=== PATIENT | male | born 1965 | race Caucasian/White ===

== ENCOUNTER 2020-10-02 16:58 | Emergency (ER) | payer SELFPAY ==
[2020-10-02 18:41] LABS: SARS-COV-2 RT PCR NEGATIVE (NEGATIVE)
--- NOTE | 2020-10-02 18:56 | ER ---
Nurse's Notes [facility] Name: Antonio Manning Age: 55 yrs Sex: Male : 1965 Arrival Date: 10/02/2020 Time: 17:02 Bed 2 Private MD: Diagnosis: Acute pharyngitis Presentation: 10/02 17:16 Chief complaint: Patient states: Nasal congestion and pressure that began "a few days ss ago". Denies fever/ cough. Coronavirus screen: Client denies travel out of the [place] in the last 14 days. Ebola Screen: Patient denies exposure to infectious person. Patient denies travel to an Ebola-affected area in the 21 days before illness onset. Initial Sepsis Screen: Does the patient meet any 2 criteria? No. Patient's initial sepsis screen is negative. Does the patient have a suspected source of infection? No. Patient's initial sepsis screen is negative. Risk Assessment: Do you want to hurt yourself or someone else? Patient reports no desire to harm self or others. Onset of symptoms is unknown. 17:16 Method Of Arrival: Ambulatory ss 17:16 Acuity: SALLIE 5 ss Historical: - Allergies: 17:17 No Known Allergies; ss - PMHx: 17:17 Diabetes - NIDDM; ss - PSHx: 17:17 None; ss - Immunization history:: Adult Immunizations up to date. - Social history:: Smoking status: Patient reports the use of cigarette tobacco products, smokes one pack cigarettes per day. Screenin:45 Abuse screen: Denies threats or abuse. Denies injuries from another. Nutritional ph screening: No deficits noted. Tuberculosis screening: No symptoms or risk factors identified. Fall Risk None identified. Assessment: 17:38 General: Appears in no apparent distress. comfortable, Behavior is calm, cooperative, ph appropriate for age, Denies fever. Pain: Denies pain. Neuro: Level of Consciousness is awake, alert, obeys commands, Oriented to person, place, time, situation. 17:45 Cardiovascular: Capillary refill < 3 seconds in bilateral fingers Patient's skin is ph warm and dry. Respiratory: Airway is patent Respiratory effort is even, unlabored, Denies cough, shortness of breath. GI: Reports diarrhea. EENT: Reports nasal congestion nasal discharge. Derm: Skin is intact, Skin is pink, warm \\T\\ dry. Musculoskeletal: Circulation, motion, and sensation intact. Range of motion: intact in all extremities. 18:19 Reassessment: Patient appears in no apparent distress at this time. Patient and/or hb family updated on plan of care and expected duration. Pain level reassessed. Patient is alert, oriented x 3, equal unlabored respirations, skin warm/dry/pink. Vital Signs: 17:16 BP 156 / 106; Pulse 87; Resp 17; Temp 97.5(O); Pulse Ox 99% on R/A; Weight 113.4 kg; Height 5 ft. 11 in. (180.34 cm); Pain 0/10; 18:42 BP 147 / 89; Pulse 71; Resp 18; Temp 97.6; Pulse Ox 99% on R/A; ph 17:16 Body Mass Index 34.87 (113.40 kg, 180.34 cm) ED Course: 17:02 Patient arrived in ED. mr 17:12 Lalo Goyal NP is PHCP. pm1 17:12 Quan Lynch MD is Attending Physician. pm1 17:17 Triage completed. ss 17:17 Arm band placed on right wrist. ss 17:30 Shawna Harris RN is Primary Nurse. ph 17:45 Patient has correct armband on for positive identification. Bed in low position. Call ph light in reach. Side rails up X 1. Pulse ox on. NIBP on. Door closed. Noise minimized. 17:45 No provider procedures requiring assistance completed. Patient did not have IV access ph during this emergency room visit. Administered Medications: 19:12 Drug: Decadron 10 mg Route: IM; Site: left gluteus; wh 19:23 Follow up: Response: No adverse reaction; Medication administered at discharge. Outcome: 18:56 Discharge ordered by . pm1 19:23 Discharged to home ambulatory. mg2 19:23 Condition: stable 19:23 Discharge instructions given to patient, Instructed on discharge instructions, follow up and referral plans. Demonstrated understanding of instructions, follow-up care. 19:23 Patient left the ED. mg2 Signatures: Franca PiperPriya RN RN Shawna Harris RN RN Lalo Goyal, JANET IUSS MASTER ANALYST pm1 Arlene Claros RN RN Eduard Guadalupe RN RN [place], Chucho, RN RN mg2
--- NOTE | 2020-10-02 18:56 | EDPHYS ---
Physician Documentation [facility] Name: Antonio Manning Age: 55 yrs Sex: Male : 1965 Arrival Date: 10/02/2020 Time: 17:02 Bed 2 Private MD: ED Physician Quan Lynch HPI: 10/02 18:39 This 55 yrs old Male presents to ER via Ambulatory with complaints of Sore pm1 throat and Sinus Congestion. 18:39 The patient presents with sore throat. Onset: The symptoms/episode began/occurred 3 pm1 day(s) ago. Severity of symptoms: in the emergency department the symptoms are actually worse. Modifying factors: The symptoms are alleviated by nothing, Patient's oral intake status: good The patient has had contact with sick son, he is presenting to the ER with n/v/d. Associated signs and symptoms: Pertinent positives: sinus headache, sore throat, Pertinent negatives chest pain, cough, fever. The patient has not experienced similar symptoms in the past. The patient has not recently seen a physician. Patient with initial onset of sore throat 3 days ago then sinus pain and pressure started. Historical: - Allergies: 17:17 No Known Allergies; ss - PMHx: 17:17 Diabetes - NIDDM; ss - PSHx: 17:17 None; ss - Immunization history:: Adult Immunizations up to date. - Social history:: Smoking status: Patient reports the use of cigarette tobacco products, smokes one pack cigarettes per day. ROS: 18:39 Constitutional: Negative for fever, chills, and weight loss. pm1 18:39 Neck: Negative for injury, pain, and swelling, Cardiovascular: Negative for chest pain, palpitations, and edema, Respiratory: Negative for shortness of breath, cough, wheezing, and pleuritic chest pain, Abdomen/GI: Negative for abdominal pain, nausea, vomiting, diarrhea, and constipation, Back: Negative for injury and pain, MS/Extremity: Negative for injury and deformity, Skin: Negative for injury, rash, and discoloration, Neuro: Negative for headache, weakness, numbness, tingling, and seizure. 18:39 ENT: Positive for sinus congestion, sinus pain, sore throat, Negative for ear pain, difficulty swallowing, difficulty handling secretions, hoarseness. Exam: 18:39 Constitutional: This is a well developed, well nourished patient who is awake, alert, pm1 and in no acute distress. 18:39 Neck: Trachea midline, no thyromegaly or masses palpated, and no cervical lymphadenopathy. Supple, full range of motion without nuchal rigidity, or vertebral point tenderness. No Meningismus. 18:39 Back: No spinal tenderness. No costovertebral tenderness. Full range of motion. Skin: Warm, dry with normal turgor. Normal color with no rashes, no lesions, and no evidence of cellulitis. MS/ Extremity: Pulses equal, no cyanosis. Neurovascular intact. Full, normal range of motion. 18:39 Head/face: Sinus tenderness, that is moderate, is located over the left maxillary sinus. 18:39 ENT: Posterior pharynx: Tonsils: bilaterally enlarged, with erythema, no exudate, no ulcerations, peritonsillar mass, is not appreciated. 18:39 Cardiovascular: Exam negative for acute changes, Rate: normal, Rhythm: regular, Pulses: no pulse deficits are appreciated. 18:39 Respiratory: Exam negative for acute changes, respiratory distress, shortness of breath. 18:39 Neuro: Exam negative for acute changes, Orientation: is normal, Mentation: is normal, Motor: is normal, moves all fours. Vital Signs: 17:16 BP 156 / 106; Pulse 87; Resp 17; Temp 97.5(O); Pulse Ox 99% on R/A; Weight 113.4 kg; ss Height 5 ft. 11 in. (180.34 cm); Pain 0/10; 18:42 BP 147 / 89; Pulse 71; Resp 18; Temp 97.6; Pulse Ox 99% on R/A; ph 17:16 Body Mass Index 34.87 (113.40 kg, 180.34 cm) ss MDM: 17:12 Patient medically screened. pm1 18:55 Data reviewed: vital signs. Data interpreted: Pulse oximetry: on room air is 99 %. pm1 Interpretation: normal. Counseling: I had a detailed discussion with the patient and/or guardian regarding: the historical points, exam findings, and any diagnostic results supporting the discharge/admit diagnosis, lab results, the need for outpatient follow up, to return to the emergency department if symptoms worsen or persist or if there are any questions or concerns that arise at home. 10/02 17:26 Order name: Strep; Complete Time: 18:32 pm1 10/02 18:22 Order name: Throat Culture EDMS 10/02 17:26 Order name: Droplet/Contact Precautions; Complete Time: 17:31 pm1 10/02 17:26 Order name: Labs collected and sent; Complete Time: 17:31 pm1 10/02 17:26 Order name: O2 Per Protocol; Complete Time: 17:44 pm1 10/02 18:41 Order name: COVID-19/FLU A+B; Complete Time: 18:54 EDMS Administered Medications: 19:12 Drug: Decadron 10 mg Route: IM; Site: left gluteus; 19:23 Follow up: Response: No adverse reaction; Medication administered at discharge. Disposition: 10/02/20 18:56 Discharged to Home. Impression: Acute pharyngitis. - Condition is Stable. - Discharge Instructions: Pharyngitis, Sinusitis, Adult. - Prescriptions for Augmentin 875- 125 mg Oral Tablet - take 1 tablet by ORAL route every 12 hours for 10 days; 20 tablet. - Medication Reconciliation Form, Thank You Letter, Antibiotic Education, Prescription Opioid Use form. - Follow up: Emergency Department; When: As needed; Reason: Worsening of condition. Follow up: Private Physician; When: 2 - 3 days; Reason: Recheck today's complaints, Continuance of care, Re-evaluation by your physician. - Problem is new. - Symptoms have improved. Addendum: 10/04/2020 06:13 Co-signature as Attending Physician, Quan Lynch MD I agree with the assessment and c dugan plan of care. Signatures: Dispatcher [employer] [facility] Quan Lynch MD MD cha Smirch, Shelby, RN RN Lalo Goyal, JANET NUT SORTER OPERATOR pm1 Eduard Guadalupe RN RN Chucho Humphrey RN RN mg2 Corrections: (The following items were deleted from the chart) 10/02 17:59 17:27 Influenza Screen (A \T\ B)+BA.LAB.BRZ ordered. EDPR EDPR 17:59 17:41 CORONAVIRUS+MR.LAB.BRZ ordered. EDPR EDMS 19:23 18:56 10/02/2020 18:56 Discharged to Home. Impression: Acute pharyngitis. Condition is mg2 Stable. Forms are Medication Reconciliation Form, Thank You Letter, Antibiotic Education, Prescription Opioid Use. Follow up: Emergency Department; When: As needed; Reason: Worsening of condition. Follow up: Private Physician; When: 2 - 3 days; Reason: Recheck today's complaints, Continuance of care, Re-evaluation by your physician. Problem is new. Symptoms have improved. pm1
[2020-10-02] MEDS ORDERED: dexAMETHasone 10 MG/ML VIAL ONE (19:26)
[2020-10-02 20:22] VITALS: O2SAT 99
[2020-10-02 20:23] VITALS: BP 147/89; TEMP 97.6
== END 2020-10-02 19:23 | disposition home or self-care (01) ==
LOC: ER 16:58
DX: J02.9 Acute pharyngitis, unspecified (principal); Z20.822 Contact with and (suspected) exposure to COVID-19; F17.210 Nicotine dependence, cigarettes, uncomplicated
CPT/HCPCS: 0240U; 87070; 87081; 96372; 99283; J1100

== ENCOUNTER 2020-10-07 18:08 | Emergency (ER) | payer SELFPAY ==
[2020-10-07] MEDS ORDERED: ACETAMINOPHEN 500 MG TAB ONE (19:57)
--- NOTE | 2020-10-07 20:03 | RAD REPORT ---
EXAM DESCRIPTION: CT - Head Brain Wo Cont - 10/07/2020 7:52 pm CLINICAL HISTORY: Dizziness;Headache Headache, drowsiness COMPARISON: No comparisons TECHNIQUE: All CT scans are performed using dose optimization technique as appropriate and may inclu de automated exposure control or mA/KV adjustment according to patient size. FINDINGS: No intracranial hemorrhage, hydrocephalus or extra-axial fluid collection.No areas of brai n edema or evidence of midline shift. Left maxillary antrum and ethmoid air cells are opacified. Paranasal sinuses and mastoids are otherwi se clear. The calvarium is intact. IMPRESSION: No acute intracranial abnormality.
--- NOTE | 2020-10-07 20:04 | RAD REPORT ---
EXAM DESCRIPTION: RAD - Chest Pa And Lat (2 Views) - 10/07/2020 7:59 pm CLINICAL HISTORY: COUGH Chest pain. COMPARISON: No comparisons FINDINGS: The lungs are clear. The heart is normal in size. No displaced fractures. IMPRESSION: No acute or concerning finding suspected.
[2020-10-07 20:52] LABS: Absolute Lymphocytes (CBC) 2.7 K/uL (0.7-4.9); Basophils % 0.9 % (0-1.3); Hematocrit 49.6 % (39.6-49.0); Lymphocytes % 17.7 % (15.3-44.8); MPV 9.6 fL (7.6-11.3); RBC Red Blood Cell Count 5.72 M/uL (4.33-5.43)
[2020-10-07 21:09] LABS: ALT/SGPT 70 U/L (12-78); AST/SGOT 39 U/L (15-37); Albumin 3.4 g/dL (3.4-5.0); Alkaline Phosphatase 103 U/L (45-117); BUN Blood Urea Nitrogen 13 mg/dL (7-18); Bicarbonate 23 mmol/L (21-32); Bilirubin Direct 0.3 mg/dL (0-0.2); Glucose Level 369 mg/dL (74-106); Lipase 34 U/L (73-393); Potassium 4.3 mmol/L (3.5-5.1); Protein, Total 7.4 g/dL (6.4-8.2); Sodium Level 131 mmol/L (136-145)
[2020-10-07 21:51] LABS: Blood Morphology Comment NOT SEEN (NOT SEEN); Platelet Estimate DECR; White Blood Cell Scan OK (OK)
[2020-10-07] MEDS ORDERED: NPH (HUMAN) 100 UNITS/ML INSULIN SQ ONE (21:55)
[2020-10-07] MEDS ORDERED: MECLIZINE HCL 12.5 MG TAB ONE (21:56)
[2020-10-07] MEDS ORDERED: CEFTRIAXONE/SWI 1gm 1 GM/10 ML SYR ONE (21:56)
[2020-10-07] MEDS ORDERED: NA CHLORIDE 0.9% 1,000 ML ONE (21:56)
--- NOTE | 2020-10-07 23:08 | ER ---
Nurse's Notes [facility] Name: Antonio Manning Age: 55 yrs Sex: Male : 1965 Arrival Date: 10/07/2020 Time: 18:10 Bed 7 Private MD: Diagnosis: Acute sinusitis;Dizziness and giddiness;Diabetes mellitus due to underlying condition with hyperglycemia Presentation: 10/07 18:20 Chief complaint: Patient states: Continued nasal congestion/ESTRADA''s since last visit here ll1 on Sunday. Antibiotics (amoxicillin) not helping. Fever around 100 at home. + N/V/D. Feels dizzy, weak, fatigue. Coronavirus screen: Client denies travel out of the [place] in the last 14 days. congestion, difficulty breathing, fatigue, headache, Client presents with at least one sign or symptom that may indicate coronavirus-19. Standard/surgical mask placed on the client. The client reports previous COVID testing was negative. Ebola Screen: Patient denies travel to an Ebola-affected area in the 21 days before illness onset. Initial Sepsis Screen: Does the patient meet any 2 criteria? HR > 90 bpm. No. Patient's initial sepsis screen is negative. Does the patient have a suspected source of infection? Yes: Other: sinus infecrtion. Risk Assessment: Do you want to hurt yourself or someone else? Patient reports no desire to harm self or others. Onset of symptoms was September 28, 2020. 18:20 Method Of Arrival: Ambulatory ll1 18:20 Acuity: SALLIE 3 ll1 Triage Assessment: 19:29 Headache History: The patient has had previous headaches and this one is similar to previous episodes. General: Appears in no apparent distress. Pain: Pain Also complains of COngestion. 19:31 Pain: Pain began a week ago. Historical: - Allergies: 18:23 Iodine; ll1 18:23 shrimp; ll1 - PMHx: 18:23 Diabetes - NIDDM; ll1 - PSHx: 18:23 None; ll1 - Immunization history:: Flu vaccine is up to date. - Social history:: Smoking status: Patient reports the use of cigarette tobacco products, smokes one pack cigarettes per day. Screenin:43 Abuse screen: Denies threats or abuse. Denies injuries from another. Nutritional ph screening: No deficits noted. Tuberculosis screening: No symptoms or risk factors identified. Fall Risk None identified. Assessment: 19:28 General: Appears in no apparent distress. Behavior is calm, cooperative, appropriate wh for age. Pain: Complains of pain in face. Neuro: Level of Consciousness is awake, alert, obeys commands, Oriented to person, place, time, situation, Appropriate for age. Cardiovascular: Capillary refill < 3 seconds. Respiratory: Reports cough that is Congestion Airway is patent Respiratory effort is even, unlabored, Respiratory pattern is regular, symmetrical. GI: Abdomen is flat, non-distended. : No signs and/or symptoms were reported regarding the genitourinary system. EENT: No signs and/or symptoms were reported regarding the EENT system. Derm: Skin is intact. Musculoskeletal: Circulation, motion, and sensation intact. 21:00 Reassessment: Patient appears in no apparent distress at this time. Patient and/or wh family updated on plan of care and expected duration. Pain level reassessed. Patient is alert, oriented x 3, equal unlabored respirations, skin warm/dry/pink. 22:44 Reassessment: Patient appears in no apparent distress at this time. Patient and/or mg2 family updated on plan of care and expected duration. Pain level reassessed. Patient is alert, oriented x 3, equal unlabored respirations, skin warm/dry/pink. 23:19 Reassessment: Patient appears in no apparent distress at this time. Patient and/or wh family updated on plan of care and expected duration. Pain level reassessed. Patient is alert, oriented x 3, equal unlabored respirations, skin warm/dry/pink. Vital Signs: 18:20 BP 137 / 102; Pulse 96; Resp 18; Temp 97.7; Pulse Ox 100% on R/A; Weight 113.4 kg; ll1 Height 5 ft. 11 in. (180.34 cm); Pain 9/10; 20:02 BP 142 / 98 Supine; Pulse 86; oe 20:04 BP 126 / 92 Sitting; Pulse 96; oe 20:06 BP 110 / 88 Standing; Pulse 100; oe 22:44 BP 126 / 77; Pulse 95; Resp 18; Pulse Ox 100% on R/A; mg2 23:19 BP 131 / 81; Pulse 88; Resp 18; Pulse Ox 98% on R/A; wh 18:20 Body Mass Index 34.87 (113.40 kg, 180.34 cm) ll1 ED Course: 18:10 Patient arrived in ED. as 18:22 Triage completed. ll1 18:22 Arm band placed on. ll1 18:43 Patient has correct armband on for positive identification. Bed in low position. Call ph light in reach. Side rails up X 1. Pulse ox on. NIBP on. Door closed. Noise minimized. Warm blanket given. 18:55 Quan Gill PA is PHCP. cp 18:55 Rob Benson MD is Attending Physician. cp 19:18 Chucho Humphrey, RN is Primary Nurse. mg2 19:57 CT Head Brain wo Cont In Process Unspecified. EDMS 19:59 XRAY Chest Pa And Lat (2 Views) In Process Unspecified. EDMS 20:30 Inserted saline lock: 20 gauge in left antecubital area, using aseptic technique. Blood mg2 collected. 20:39 No provider procedures requiring assistance completed. mg2 20:45 Quan Lynch MD is Attending Physician. cp 23:20 IV discontinued, intact, bleeding controlled, No redness/swelling at site. Administered Medications: 19:42 Drug: Tylenol 1000 mg Route: PO; 21:27 Follow up: Response: No adverse reaction mg2 20:38 Drug: NS 0.9% 1000 ml Route: IV; Rate: 1 bolus; Site: left antecubital; 23:09 Follow up: Response: No adverse reaction; IV Status: Completed infusion; IV Intake: mg2 1000ml 21:44 Drug: Meclizine 25 mg Route: PO; mg2 23:09 Follow up: Response: No adverse reaction mg2 21:44 Drug: NS 0.9% 1000 ml Route: IV; Rate: 1 bolus; Site: left antecubital; mg2 23:09 Follow up: Response: No adverse reaction; IV Status: Completed infusion; IV Intake: mg2 100ml 21:45 Drug: Rocephin 1 grams Route: IV; Rate: calculated rate; Site: left antecubital; mg2 23:09 Follow up: Response: No adverse reaction; IV Status: Completed infusion mg2 21:45 Drug: NovoLIN N 7 units {Co-Signature: mg2 (Chucho Humphrey RN).} Route: Sub-Q; Site: right lower abdomen; 23:08 Follow up: Response: No adverse reaction mg2 Intake: 23:09 IV: 100ml; Total: 100ml. mg2 23:09 IV: 1000ml; Total: 1100ml. mg2 Outcome: 23:08 Discharge ordered by . cp 23:19 Discharged to home ambulatory. 23:19 Condition: stable 23:19 Discharge instructions given to patient, Instructed on discharge instructions, follow up and referral plans. medication usage, POC Demonstrated understanding of instructions, follow-up care, medications, POC Prescriptions given X 3. 23:20 Patient left the ED. Signatures: Dispatcher [employer] EDMS Mary Damian Patricia, RN RN ph Bridget, Quan, PA PA cp Jaime Klein Winsy, RN RN Chucho Humphrey RN RN [facility] Damion Del Rio RN RN [facility] Chucho Humphrey RN [facility] Corrections: (The following items were deleted from the chart) 18:24 18:20 Chief complaint: Patient states: Continued nasal congestion/ESTRADA''s since last [facility] visit here on Sunday. Antibiotics (amoxicillin) not helping. Fever around 100 at home. + N/V/D. [facility] 19:42 19:28 Respiratory: Reports Congestion Airway is patent Respiratory effort is even, wh unlabored, Respiratory pattern is regular, symmetrical, wh
--- NOTE | 2020-10-07 23:09 | EDPHYS ---
Physician Documentation [facility] Name: Antonio Manning Age: 55 yrs Sex: Male : 1965 Arrival Date: 10/07/2020 Time: 18:10 Bed 7 Private MD: ED Physician Quan Lynch HPI: 10/07 19:40 This 55 yrs old Male presents to ER via Ambulatory with complaints of Sinus cp Congestion - antibiotics not working, Headache, Dizziness. 19:40 The patient presents with dizziness, lightheadedness. cp 19:40 Associated signs and symptoms: Pertinent positives: headache, nausea, vomiting, sinus cp pressure and sinus congestion, Pertinent negatives: fever. 19:40 Patient's baseline: Neuro: alert and fully oriented, Motor: no deficits, Ambulation: cp walks without assistance, Speech: normal. Patient reports being seen in this ED 10-02-2020 and being diagnosed with acute sinusitis. Patient reports he has been taking prescribed Augmentin with no improvement. Patient c/o headache, dizziness, general weakness. Denies fever. Historical: - Allergies: 18:23 Iodine; ll1 18:23 shrimp; ll1 - PMHx: 18:23 Diabetes - NIDDM; ll1 - PSHx: 18:23 None; ll1 - Immunization history:: Flu vaccine is up to date. - Social history:: Smoking status: Patient reports the use of cigarette tobacco products, smokes one pack cigarettes per day. ROS: 19:45 Constitutional: Positive for fatigue, Negative for body aches, chills, fever, poor PO cp intake. 19:45 Eyes: Negative for injury, pain, redness, and discharge. cp 19:45 ENT: Positive for sinus congestion, sinus pain, Negative for drainage from ear(s), ear pain, difficulty swallowing, difficulty handling secretions. 19:45 Cardiovascular: Negative for chest pain. 19:45 Respiratory: Negative for cough, shortness of breath, wheezing. 19:45 Abdomen/GI: Positive for nausea and vomiting, Negative for diarrhea, constipation. 19:45 Neuro: Positive for dizziness, headache, general weakness, Negative for altered mental status. 19:45 All other systems are negative. Exam: 19:50 Constitutional: The patient appears in no acute distress, alert, awake, non-toxic, well cp developed, well nourished. 19:50 Head/face: Sinus tenderness, that is moderate, is located over the right maxillary cp sinus. 19:50 Eyes: Periorbital structures: appear normal, Pupils: equal, round, and reactive to light and accomodation, Extraocular movements: intact throughout, Conjunctiva: normal, no exudate, no injection, Sclera: no appreciated abnormality, Lids and lashes: appear normal, bilaterally. 19:50 ENT: External ear(s): are unremarkable, Ear canal(s): are normal, clear, TM's: dullness, bilaterally, Nose: is normal, Mouth: Lips: moist, Oral mucosa: pink and intact, moist, Posterior pharynx: Airway: no evidence of obstruction, patent. 19:50 Neck: ROM/movement: is normal, is supple, without pain, no range of motions limitations, no meningismus, Lymph nodes: no appreciated lymphadenopathy. 19:50 Chest/axilla: Inspection: normal. 19:50 Cardiovascular: Rate: normal, Rhythm: regular, Edema: is not appreciated, JVD: is not appreciated. 19:50 Respiratory: the patient does not display signs of respiratory distress, Respirations: normal, no use of accessory muscles, no retractions, labored breathing, is not present, Breath sounds: are clear throughout, no decreased breath sounds, no stridor, no wheezing. 19:50 Abdomen/GI: Exam negative for discomfort, distension, guarding, Inspection: abdomen appears normal. 19:50 Skin: cellulitis, is not appreciated, no rash present. 19:50 Neuro: Orientation: to person, place \T\ time. Mentation: is normal, Cerebellar function: is grossly normal, Motor: moves all fours, strength is normal, Sensation: is normal. Vital Signs: 18:20 BP 137 / 102; Pulse 96; Resp 18; Temp 97.7; Pulse Ox 100% on R/A; Weight 113.4 kg; ll1 Height 5 ft. 11 in. (180.34 cm); Pain 9/10; 20:02 BP 142 / 98 Supine; Pulse 86; oe 20:04 BP 126 / 92 Sitting; Pulse 96; oe 20:06 BP 110 / 88 Standing; Pulse 100; oe 22:44 BP 126 / 77; Pulse 95; Resp 18; Pulse Ox 100% on R/A; mg2 23:19 BP 131 / 81; Pulse 88; Resp 18; Pulse Ox 98% on R/A; wh 18:20 Body Mass Index 34.87 (113.40 kg, 180.34 cm) ll1 MDM: 18:58 Patient medically screened. cp 23:07 Data reviewed: vital signs, nurses notes, lab test result(s), radiologic studies, CT cp scan, plain films. 23:07 Counseling: I had a detailed discussion with the patient and/or guardian regarding: the cp historical points, exam findings, and any diagnostic results supporting the discharge/admit diagnosis, lab results, radiology results, to return to the emergency department if symptoms worsen or persist or if there are any questions or concerns that arise at home. Response to treatment: the patient's symptoms have markedly improved after treatment, patient is well hydrated. ED course: VSS. Pain, nausea and dizziness improved. Will discharge to home for continued monitoring. Will have patient start oral Levaquin for sinusitis. 10/07 19:50 Order name: Basic Metabolic Panel; Complete Time: 21:30 10/07 21:30 Interpretation: Normal except: NA 131; GLUC 369; GFR 72. cp 10/07 19:50 Order name: CBC with Diff; Complete Time: 22:15 cp 10/07 21:30 Interpretation: Normal except: WBC 15.20; RBC 5.72; HCT 49.6; NEUT A 10.3; MNA 1.6. cp 10/07 19:50 Order name: Hepatic Function; Complete Time: 21:30 cp 10/07 19:50 Order name: Lipase; Complete Time: 21:30 cp 10/07 19:50 Order name: Ketone, Serum; Complete Time: 21:30 cp 10/07 19:57 Order name: Glucose, Ancillary Testing; Complete Time: 20:07 EDMS 10/07 19:36 Order name: CT Head Brain wo Cont; Complete Time: 20:07 cp 10/07 19:36 Order name: XRAY Chest Pa And Lat (2 Views); Complete Time: 20:07 cp 10/07 21:51 Order name: CBC Smear Scan; Complete Time: 22:15 EDMS 10/07 23:10 Order name: Glucose, Ancillary Testing EDNJ 10/07 19:36 Order name: Orthostatics; Complete Time: 20:39 cp 10/07 19:36 Order name: Accucheck Blood Glucose; Complete Time: 19:45 cp 10/07 19:50 Order name: IV Saline Lock; Complete Time: 20:38 cp 10/07 19:50 Order name: Labs collected and sent; Complete Time: 20:38 cp 10/07 21:37 Order name: PO challenge; Complete Time: 21:44 cp 10/07 22:53 Order name: Accucheck Blood Glucose; Complete Time: 22:58 cp Administered Medications: 19:42 Drug: Tylenol 1000 mg Route: PO; 21:27 Follow up: Response: No adverse reaction mg2 20:38 Drug: NS 0.9% 1000 ml Route: IV; Rate: 1 bolus; Site: left antecubital; 23:09 Follow up: Response: No adverse reaction; IV Status: Completed infusion; IV Intake: mg2 1000ml 21:44 Drug: Meclizine 25 mg Route: PO; mg2 23:09 Follow up: Response: No adverse reaction mg2 21:44 Drug: NS 0.9% 1000 ml Route: IV; Rate: 1 bolus; Site: left antecubital; mg2 23:09 Follow up: Response: No adverse reaction; IV Status: Completed infusion; IV Intake: mg2 100ml 21:45 Drug: Rocephin 1 grams Route: IV; Rate: calculated rate; Site: left antecubital; mg2 23:09 Follow up: Response: No adverse reaction; IV Status: Completed infusion mg2 21:45 Drug: NovoLIN N 7 units {Co-Signature: mg2 (Chucho Humphrey RN).} Route: Sub-Q; Site: right lower abdomen; 23:08 Follow up: Response: No adverse reaction mg2 Disposition: 23:30 Chart complete. 10/08 05:51 Co-signature as Attending Physician, Quan Lynch MD I agree with the assessment and shruthi plan of care. Disposition: 10/07/20 23:08 Discharged to Home. Impression: Acute sinusitis, Dizziness and giddiness, Diabetes mellitus due to underlying condition with hyperglycemia. - Condition is Stable. - Discharge Instructions: Dizziness, Sinusitis, Adult, Blood Glucose Monitoring, Adult, Diabetes Mellitus and Food. - Prescriptions for Levaquin 500 mg Oral Tablet - take 1 tablet by ORAL route once daily for 10 days; 10 tablet. Meclizine 25 mg Oral Tablet - take 1 tablet by ORAL route every 8 hours As needed; 30 tablet. Zofran 4 mg Oral Tablet - take 1 tablet by ORAL route every 12 hours As needed; 20 tablet. - Medication Reconciliation Form, Thank You Letter, Antibiotic Education, Prescription Opioid Use form. - Follow up: Private Physician; When: 2 - 3 days; Reason: Recheck today's complaints. - Problem is new. - Symptoms have improved. Signatures: Dispatcher [employer] EDMS Quan Lynch MD MD cha Page, Corey, PA PA cp Eduard Guadalupe RN RN Chucho Humphrey RN RN mg2 Damion Del Rio RN RN ll1 Chucho Humphrey RN mg2 Corrections: (The following items were deleted from the chart) 10/07 21:30 21:30 Normal except: WBC 15.20; RBC 5.72; HCT 49.6; NEUT A 10.3. cp cp 23:20 23:08 10/07/2020 23:08 Discharged to Home. Impression: Acute sinusitis; Dizziness and wh giddiness; Diabetes mellitus due to underlying condition with hyperglycemia. Condition is Stable. Forms are Medication Reconciliation Form, Thank You Letter, Antibiotic Education, Prescription Opioid Use. Follow up: Private Physician; When: 2 - 3 days; Reason: Recheck today's complaints. Problem is new. Symptoms have improved. cp
[2020-10-07 23:55] VITALS: TEMP 97.7
[2020-10-08 00:20] VITALS: BP 131/81; O2SAT 98
== END 2020-10-07 23:20 | disposition home or self-care (01) ==
LOC: ER 18:08
DX: J01.90 Acute sinusitis, unspecified (principal); E11.65 Type 2 diabetes mellitus with hyperglycemia; R42 Dizziness and giddiness; F17.210 Nicotine dependence, cigarettes, uncomplicated
CPT/HCPCS: 36415; 70450; 71046; 80048; 80076; 82010; 82947; 83690; 85025; 96361; 96365; 96372; 99284; J0696; J1815; J7030

== ENCOUNTER 2021-08-01 18:31 | Inpatient (IN) | payer SELFPAY ==
--- NOTE | 2021-08-01 20:29 | RAD REPORT ---
EXAM DESCRIPTION: RAD - Chest Pa And Lat (2 Views) - 08/01/2021 8:09 pm CLINICAL HISTORY: Cough;Congestion Chest pain. COMPARISON: Chest Pa And Lat (2 Views) dated 10/07/2020 FINDINGS: Mild interstitial lung opacities are seen with suggesting mild viral infection. The heart is mildly prominent in size. No displaced fractures.
[2021-08-01 20:56] LABS: SARS-COV-2 RT PCR NEGATIVE (NEGATIVE)
--- NOTE | 2021-08-01 22:53 | EDPHYS ---
Physician Documentation [facility] Name: Antonio Manning Age: 56 yrs Sex: Male : 1965 Arrival Date: 08/01/2021 Time: 18:33 Bed 18 Private MD: ED Physician Ricki Santo HPI: 08/01 20:42 This 56 yrs old Male presents to ER via Unassigned with complaints of Chills, Fever. kb 20:42 The patient or guardian reports cough, that is intermittent, described as mild. Onset: kb The symptoms/episode began/occurred 5 day(s) ago. Severity of symptoms: At their worst the symptoms were mild, moderate, in the emergency department the symptoms are unchanged. Modifying factors: The symptoms are alleviated by nothing, the symptoms are aggravated by nothing. Associated signs and symptoms: Pertinent positives: fever, Pertinent negatives: chest pain, diarrhea, ear ache, nausea, rhinorrhea, sore throat, vomiting. The patient has not experienced similar symptoms in the past. The patient has not recently seen a physician. Pt reports fever, chills, cough for 4-5 days. . - Immunization history:: Adult Immunizations up to date. - Social history:: Smoking status: Patient reports the use of cigarette tobacco products, smokes one pack cigarettes per day. ROS: 20:41 Abdomen/GI: Negative for abdominal pain, nausea, vomiting, diarrhea, and constipation. kb 20:41 Constitutional: Positive for body aches, chills, fatigue, fever, malaise. 20:41 Respiratory: Positive for cough, Negative for dyspnea on exertion, hemoptysis, orthopnea, pleurisy, shortness of breath, sputum production, wheezing. 20:41 All other systems are negative. Exam: 23:30 Head/Face: Normocephalic, atraumatic. cp 23:30 Constitutional: The patient appears in no acute distress, alert, awake, non-diaphoretic, non-toxic, well developed, well nourished, uncomfortable. 23:30 Eyes: Periorbital structures: appear normal, Conjunctiva: normal, no exudate, no injection, Sclera: no appreciated abnormality, Lids and lashes: appear normal, bilaterally. 23:30 ENT: External ear(s): are unremarkable, Ear canal(s): are normal, clear, TM's: dullness, bilaterally, Nose: is normal, Mouth: Lips: dry, Oral mucosa: moist, Posterior pharynx: Airway: no evidence of obstruction, patent. 23:30 Neck: ROM/movement: is normal, is supple, without pain, no range of motions limitations, no meningismus, no nuchal rigidity. 23:30 Chest/axilla: Inspection: normal, Palpation: is normal, no crepitus, no tenderness. 23:30 Cardiovascular: Rate: tachycardic, Rhythm: regular, Edema: is not appreciated, JVD: is cp not appreciated. 23:30 Respiratory: the patient does not display signs of respiratory distress, Respirations: cp normal, no use of accessory muscles, labored breathing, is not present, Breath sounds: are clear throughout, no decreased breath sounds, no stridor, no wheezing. 23:30 Abdomen/GI: Inspection: abdomen appears normal, Bowel sounds: active, all quadrants, Palpation: soft, in all quadrants, mild abdominal tenderness, in the right lower quadrant and left lower quadrant, rebound tenderness, is not appreciated, involuntary guarding, is not appreciated. 08/02 02:20 ECG was reviewed by the Attending Physician. cp Vital Signs: 08/01 21:28 BP 95 / 67; Pulse 109; Resp 20; Temp 98.6; Pulse Ox 98% ; Weight 99.79 kg; Height 5 ft. jh5 11 in. (180.34 cm); 08/02 02:10 BP 108 / 66; Pulse 120; Resp 18 S; Temp 98.4(O); Pulse Ox 95% on R/A; bb 03:30 BP 110 / 60; Pulse 118; Resp 18; Pulse Ox 95% on R/A; oe 04:30 BP 108 / 54; Pulse 116; Resp 18; Pulse Ox 95% on R/A; oe 05:46 BP 112 / ???; Pulse 121; Resp 18; Pulse Ox 96% on R/A; oe 18:00 BP 124 / 76; Pulse 117; Resp 20; Temp 102; Pulse Ox 97% on R/A; tm3 19:42 BP 106 / 68; Pulse 111; Resp 18; Temp 102.7; Pulse Ox 90% 0 lpm ; ae4 08/01 21:28 Body Mass Index 30.68 (99.79 kg, 180.34 cm) jh5 MDM: 08/01 20:01 Patient medically screened. kb 20:41 Data reviewed: vital signs, nurses notes. Data interpreted: Pulse oximetry: on room air kb is 98 %. Interpretation: normal. 23:00 Differential Diagnosis: Bronchitis Influenza Pneumonia Other electrolyte abnormality, cp COVID-19, cardiac arrythmia, pneumonia. 08/02 03:00 Physician consultation: Jason MURPHY was called at 03:00, was contacted at 03:00, cp regarding admission, to the telemetry unit. patient's condition, and will see patient in ED. 08/01 19:47 Order name: COVID-19/FLU A+B (Document "Date of Onset" if Symptomatic) kb 08/01 19:48 Order name: COVID-19/FLU A+B; Complete Time: 22:37 EDMS 08/01 23:00 Interpretation: Reviewed. 08/01 23:16 Order name: Basic Metabolic Panel; Complete Time: 00:50 08/02 00:53 Interpretation: Normal except: NA 124; CL 89; GLUC 395; BUN 21; CRE 1.37; GFR 54; CA cp 8.4. 08/01 23:16 Order name: CBC with Diff; Complete Time: 02:35 cp 08/02 00:51 Interpretation: Normal except: PLT 89; MPV 11.6; CARLI% 83.7; LYM% 8.8; LYMA 0.6. 08/01 23:16 Order name: Hepatic Function; Complete Time: 00:50 cp 08/02 00:51 Interpretation: Normal except: AST 77; ALT 94; BILIT 2.0; BILID 1.4; ALB 2.6; GLOB 4.3; cp A/G 0.6. 08/01 23:16 Order name: Lipase; Complete Time: 00:50 cp 08/02 01:06 Interpretation: Abnormal: LIP 18. 08/01 23:16 Order name: Urine Microscopic Only; Complete Time: 02:35 cp 08/01 23:16 Order name: Magnesium; Complete Time: 00:50 cp 08/02 00:51 Interpretation: Abnormal: MG 1.3. 08/02 01:14 Order name: Urine Dipstick-Ancillary; Complete Time: 02:35 EDMS 08/02 02:35 Interpretation: Normal except: UGLUC 2+; UPROT 2+. 08/02 02:00 Order name: CBC Smear Scan; Complete Time: 02:35 EDMS 08/02 08:56 Order name: Protime (+INR); Complete Time: 16:52 EDMS 08/02 08:56 Order name: PTT, Activated Partial Thromb; Complete Time: 16:52 EDMS 08/02 09:01 Order name: Acetone Level; Complete Time: 16:52 EDMS 08/02 09:24 Order name: Alcohol Serum/Plasma; Complete Time: 16:52 EDMS 08/01 20:00 Order name: Chest Pa And Lat (2 Views) XRAY; Complete Time: 19:08 kb 08/01 22:38 Interpretation: Report reviewed. 08/02 01:21 Order name: Abdomen ; Complete Time: 16:52 EDMS 08/02 03:38 Order name: Abdomen Limited US: RUQ; Complete Time: 16:52 ej 08/02 09:28 Order name: Comprehensive Metabolic Panel; Complete Time: 16:52 EDMS 08/02 09:28 Order name: C-Reactive Protein; Complete Time: 16:52 EDMS 08/02 09:28 Order name: Acetaminophen Level; Complete Time: 16:52 EDMS 08/02 09:28 Order name: Magnesium; Complete Time: 16:52 EDMS 08/02 09:28 Order name: Ferritin; Complete Time: 16:52 EDMS 08/02 09:32 Order name: Procalcitonin; Complete Time: 16:52 EDMS 08/02 09:39 Order name: CT; Complete Time: 16:52 EDMS 08/02 09:51 Order name: Glucose, Ancillary Testing; Complete Time: 16:52 EDMS 08/02 12:34 Order name: Basic Metabolic Panel; Complete Time: 16:52 EDMS 08/02 13:56 Order name: Glucose, Ancillary Testing; Complete Time: 16:52 EDMS 08/02 17:47 Order name: Glucose, Ancillary Testing; Complete Time: 19:08 EDMS 08/02 19:33 Order name: COVID-19/FLU A+B; Complete Time: 19:08 EDMS 08/01 23:16 Order name: IV Saline Lock; Complete Time: 02:20 08/01 23:16 Order name: Labs collected and sent; Complete Time: 02:20 08/01 23:16 Order name: Urine Dipstick-Ancillary (obtain specimen); Complete Time: 01:14 cp 08/02 01:05 Order name: EKG; Complete Time: 01:05 cp 08/02 01:05 Order name: EKG - Nurse/Tech; Complete Time: 02:18 cp EC:20 Rate is 118 beats/min. Rhythm is regular. AL interval is normal. QRS interval is cp normal. QT interval is normal. Interpreted by me. Reviewed by me. Administered Medications: 00:59 Drug: NS 0.9% 1000 ml Route: IV; Rate: 1 bolus; Site: right wrist; bb 01:00 Drug: Zofran (Ondansetron) 4 mg Route: IVP; Site: right wrist; bb 01:00 Drug: Pepcid (famotidine) 20 mg Route: IVP; Site: right wrist; bb 02:10 Drug: Magnesium Sulfate 2 grams Route: IVPB; Infused Over: 2 hrs; Site: right wrist; bb 02:10 Drug: NS 0.9% 1000 ml Route: IV; Rate: 1 bolus; Site: right wrist; bb 02:10 Drug: Insulin Regular Human 10 units {Co-Signature: sv1 (Mendez Vasquez RN).} Route: bb IVP; Site: right wrist; 19:17 CANCELLED (Physician Discretion): fentaNYL (PF) 25 mcg IVP once; RASS on ADMIN: bb Combtv4, Very Agttd3, Agttd2, Rstlss1, AlertClm0, Drwsy-1, Lt Sdtn-2, Mod Sdtn-3, Dp Sdtn-4, UnArsble-5 Disposition: 05:42 Co-signature as Attending Physician, Ricki Santo MD. pkl Disposition Summary: 08/02/21 03:03 Hospitalization Ordered Hospitalization Status: Observation cp Provider: Diana Newton cp Location: Telemetry/MedSurg (observation) cp Condition: Stable cp Problem: new cp Symptoms: have improved cp Bed/Room Type: Standard cp Room Assignment: 216(08/02/21 19:00) cg Diagnosis - Hypo-osmolality and hyponatremia cp - Hypomagnesemia cp Forms: - Medication Reconciliation Form cp - SBAR form cp Signatures: Dispatcher [employer] Debra Werner FNP-C FNP-Nicole Ricki Santo MD MD pkl Ballard, Brenda RN RN bb Quan Gill PA PA Briseyda Mak RN RN [place], CHETNA RN jh5 Mendez Vasquez RN sv1 Corrections: (The following items were deleted from the chart) 08/01 23:22 22:53 after being seen by provider the medical center 23: 22:53 wait time the medical center 08/02 00:48 08/01 20:41 Constitutional: This is a well developed, well nourished patient who is cp awake, alert, and in no acute distress. Head/Face: Normocephalic, atraumatic. ENT: Moist Mucous membranes Cardiovascular: Regular rate and rhythm with a normal S1 and S2. No gallops, murmurs, or rubs. No pulse deficits. Respiratory: Respirations even and unlabored. No increased work of breathing. Talking in full sentences Skin: Warm, dry with normal turgor. Normal color. MS/ Extremity: Pulses equal, no cyanosis. Neurovascular intact. Full, normal range of motion. Neuro: Awake and alert, GCS 15, oriented to person, place, time, and situation. Moves all extremities. Normal gait. Psych: Awake, alert, with orientation to person, place and time. Behavior, mood, and affect are within normal limits. kb 08/02 00:53 00:50 Normal except: NA 124; CL 89; GLUC 395; BUN 21; CRE 1.37; GFR 54. cp 01:04 08/01 23:17 Abdomen Pelvis W Con+CT.RAD.BRZ ordered. EDMS EDMS 08/02 19:00 03:03 cp cg 19:17 02:36 fentaNYL (PF) 25 mcg IVP once; RASS on ADMIN: Combtv4, Very Agttd3, Agttd2, bb Rstlss1, AlertClm0, Drwsy-1, Lt Sdtn-2, Mod Sdtn-3, Dp Sdtn-4, UnArsble-5 ordered. cp 19:17 19:16 fentaNYL (PF) 25 mcg IVP once; RASS on ADMIN: Combtv4, Very Agttd3, Agttd2, bb Rstlss1, AlertClm0, Drwsy-1, Lt Sdtn-2, Mod Sdtn-3, Dp Sdtn-4, UnArsble-5 ordered. bb
--- NOTE | 2021-08-01 22:53 | ER ---
Nurse's Notes [facility] Name: Antonio Manning Age: 56 yrs Sex: Male : 1965 Arrival Date: 08/01/2021 Time: 18:33 Bed 18 Private MD: Diagnosis: Hypo-osmolality and hyponatremia;Hypomagnesemia Presentation: 08/01 21:28 Chief complaint: Patient states: body aches, decreased appetite x 4-5 days. Coronavirus 5 screen: Vaccine status: Patient reports being unvaccinated. Client denies travel out of the [place] in the last 14 days. Client presents with at least one sign or symptom that may indicate coronavirus-19. Ebola Screen: Patient negative for fever greater than or equal to 101.5 degrees Fahrenheit, and additional compatible Ebola Virus Disease symptoms Patient denies exposure to infectious person. Patient denies travel to an Ebola-affected area in the 21 days before illness onset. Initial Sepsis Screen: Does the patient meet any 2 criteria? No. Patient's initial sepsis screen is negative. Does the patient have a suspected source of infection? No. Patient's initial sepsis screen is negative. Risk Assessment: Do you want to hurt yourself or someone else? Patient reports no desire to harm self or others. 21:28 Method Of Arrival: Ambulatory [facility] 21:28 Acuity: SALLIE 4 5 Triage Assessment: 21:33 General: Appears in no apparent distress. Behavior is calm, cooperative, appropriate 5 for age. Pain: Complains of pain in generalized. - Immunization history:: Adult Immunizations up to date. - Social history:: Smoking status: Patient reports the use of cigarette tobacco products, smokes one pack cigarettes per day. Screenin:33 Abuse screen: Denies threats or abuse. Denies injuries from another. Nutritional 5 screening: No deficits noted. Tuberculosis screening: No symptoms or risk factors identified. Fall Risk None identified. Vital Signs: 21:28 BP 95 / 67; Pulse 109; Resp 20; Temp 98.6; Pulse Ox 98% ; Weight 99.79 kg; Height 5 ft. [facility] 11 in. (180.34 cm); 08/02 02:10 BP 108 / 66; Pulse 120; Resp 18 S; Temp 98.4(O); Pulse Ox 95% on R/A; bb 03:30 BP 110 / 60; Pulse 118; Resp 18; Pulse Ox 95% on R/A; oe 04:30 BP 108 / 54; Pulse 116; Resp 18; Pulse Ox 95% on R/A; oe 05:46 BP 112 / ???; Pulse 121; Resp 18; Pulse Ox 96% on R/A; oe 18:00 BP 124 / 76; Pulse 117; Resp 20; Temp 102; Pulse Ox 97% on R/A; tm3 19:42 BP 106 / 68; Pulse 111; Resp 18; Temp 102.7; Pulse Ox 90% 0 lpm ; ae4 08/01 21:28 Body Mass Index 30.68 (99.79 kg, 180.34 cm) [facility] ED Course: 08/01 18:33 Patient arrived in ED. ds1 19:34 Debra Vale FNP-C is PHCP. kb 19:34 Quan Lynch MD is Attending Physician. kb 20:09 Chest Pa And Lat (2 Views) XRAY In Process Unspecified. EDMS 21:33 Triage completed. 5 22:39 Quan Gill PA is PHCP. cp 22:39 Ricki Santo MD is Attending Physician. cp 22:52 Patient's name was called from ER lobby. No response. Unable to locate patient. Will bb disposition as left without being seen by a provider. 08/02 00:06 Inserted saline lock: 20 gauge in left forearm, using aseptic technique. Blood oe collected. 01:21 Abdomen In Process Unspecified. EDMS 02:18 EKG done, by ED staff, reviewed by Quan MURPHY. lt3 03:02 Diana Newton MD is Hospitalizing Provider. cp 03:26 Mendez Vasquez, CHETNA is Primary Nurse. sv1 04:11 Abdomen Limited US: RUQ In Process Unspecified. EDMS 05:24 Inserted saline lock: 20 gauge in right forearm, using aseptic technique. oe Administered Medications: 00:59 Drug: NS 0.9% 1000 ml Route: IV; Rate: 1 bolus; Site: right wrist; bb 01:00 Drug: Zofran (Ondansetron) 4 mg Route: IVP; Site: right wrist; bb 01:00 Drug: Pepcid (famotidine) 20 mg Route: IVP; Site: right wrist; bb 02:10 Drug: Magnesium Sulfate 2 grams Route: IVPB; Infused Over: 2 hrs; Site: right wrist; bb 02:10 Drug: NS 0.9% 1000 ml Route: IV; Rate: 1 bolus; Site: right wrist; bb 02:10 Drug: Insulin Regular Human 10 units {Co-Signature: sv1 (Mendez Vasquez RN).} Route: bb IVP; Site: right wrist; 19:17 CANCELLED (Physician Discretion): fentaNYL (PF) 25 mcg IVP once; RASS on ADMIN: bb Combtv4, Very Agttd3, Agttd2, Rstlss1, AlertClm0, Drwsy-1, Lt Sdtn-2, Mod Sdtn-3, Dp Sdtn-4, UnArsble-5 Outcome: 08/01 22:53 Patient left the ED. bb 08/02 03:03 Decision to Hospitalize by Provider. cp 21:37 Patient left the ED. bb Signatures: Dispatcher [employer] EDMS Debra Vale, INCIDENT RESPONSE ANALYST-C INCIDENT RESPONSE ANALYST-Ckb Vahe Farah tm3 Charlee Pardo ds1 Karrie Zarate, RN RN bb Quan Gill, PA PA cp Jaime Klein Andrea, RN RN tia4 Eneida Wei, RN RN 5 Mansi Everett 3 Mendez Vasquez RN RN sv1 Mendez Vasquez RN sv1
[2021-08-02] MEDS ORDERED: ONDANSETRON 4 MG/2 ML VIAL ONE (00:39)
[2021-08-02] MEDS ORDERED: NA CHLORIDE 0.9% 1,000 ML ONE ×3 (00:40→09:51)
[2021-08-02] MEDS ORDERED: FAMOTIDINE 20 MG/2 ML VIAL IV ONE (00:40)
[2021-08-02 00:43] LABS: Albumin 2.6 g/dL (3.4-5.0); Bilirubin Direct 1.4 mg/dL (0-0.2); Protein, Total 6.9 g/dL (6.4-8.2)
[2021-08-02 00:45] LABS: Absolute Lymphocytes (CBC) 0.6 K/uL (0.7-4.9); Hematocrit 43.4 % (39.6-49.0); Lymphocytes % 8.8 % (15.3-44.8); MPV 11.6 fL (7.6-11.3); RBC Red Blood Cell Count 5.16 M/uL (4.33-5.43)
[2021-08-02 00:49] LABS: Magnesium 1.3 mg/dL (1.8-2.4)
[2021-08-02 01:14] LABS: Urine Blood Negative (Negative); Urine Glucose 2+ (Negative); Urine Protein 2+ (Negative); Urine Specific Gravity 1.015 (1.005-1.030)
[2021-08-02 01:49] LABS: Urine Bacteria <20 /HPF (NONE SEEN); Urine Mucus LIGHT /HPF (NONE SEEN); Urine RBC <5 /HPF (NONE SEEN)
[2021-08-02] MEDS ORDERED: INSULIN -REGULAR HUMAN 50 UNIT/0.5 ML ML ONE ×3 (01:56→17:44)
[2021-08-02] MEDS ORDERED: Magnesium Sulfate 2gm IVPB 2 G/50 ML BAG IV ONE ×3 (01:56→09:51)
[2021-08-02 01:59] LABS: Blood Morphology Comment NOT SEEN (NOT SEEN); Platelet Estimate DECR; White Blood Cell Scan OK (OK)
--- NOTE | 2021-08-02 04:37 | P.HP ---
Certification for Inpatient Patient admitted to: Inpatient With expected LOS: <2 Midnights Patient will require the following post-hospital care: None Practitioner: I am a practitioner with admitting privileges, knowledge of patient current condition, hospital course, and medical plan of care. Services: Services provided to patient in accordance with Admission requirements found in Title 42 Section 412.3 of the Code of Federal Regulations <Jason Valles - Last Filed: 08/02/21 04:31> Patient History Date of Service: 08/02/21 Reason for admission: hyponatremia History of Present Illness: Mr. Manning is a 56 yo M with T2DM, alcohol use (6 pack of beer a day) and tobacco use (1 ppd) disorder who presents with five days of left upper and left lower quadrant abdominal pain. He also reports fever, malaise, ear pain, cough, nausea and vomiting. Denies diarrhea and shortness of breath. He has been taking Dayquil, ibuprofen and alkaseltzer at home with no relief. He last ate 3 days ago, but still has been trying to drink fluids. He last took his metformin 2 days ago. Plt 89 Na 124 Cl 89 BUN 21 Cr 1.37 GFR 54 Glu 395 Mg 1.3 Tbili 1.2 Dbili 1.4 AST 77 ALT 94 albumin 2.[address] Abdomen shows moderate stool with no bowel obstruction, lobulated left lower lobe opacity possibly related to focal infiltrate but underlying mass/malignancy is not excluded. Abdominal ultrasound showed fatty liver, no gallstones, normal CBD. - Past Medical/Surgical History -: situs inversus totalis -: T2DM Past Surgical History: Patient denies surgical history - Family History Mother -: Cancer Father -: Other (see notes) Notes: suicide - Social History Smoking Status: Current every day smoker Alcohol use: Yes CD- Drugs: No Caffeine use: No Place of Residence: Home <Jason Valles Yonis - Last Filed: 08/02/21 04:31> Date of Service: 08/02/21 <Diana Newton - Last Filed: 08/03/21 10:59> Review of Systems 10-point ROS is otherwise unremarkable General: Fever, Chills, Sweats, Weakness, Malaise, As per HPI Eyes: Unremarkable ENT: Unremarkable Respiratory: Cough, As per HPI Cardiovascular: Unremarkable Gastrointestinal: Nausea, Vomiting, Abdominal Pain, As per HPI Genitourinary: Unremarkable Musculoskeletal: Unremarkable Integumentary: Unremarkable Neurological: Unremarkable Lymphatics: Unremarkable <Jason Valles - Last Filed: 08/02/21 04:31> Physical Examination - Vital Signs Temperature: 98.6 F Blood Pressure: 95/67 Pulse: 109 Respirations: 20 - Physical Exam General: Alert, In no apparent distress, Obese HEENT: Atraumatic, PERRLA, Mucous membr. moist/pink, EOMI, Sclerae nonicteric Neck: Supple, 2+ carotid pulse no bruit, No LAD, Without JVD or thyroid abnormality Respiratory: Diminished Cardiovascular: No edema, Regular rate/rhythm, Normal S1 S2 Gastrointestinal: Normal bowel sounds, No tenderness Musculoskeletal: No tenderness Integumentary: No rashes Neurological: Normal speech, Normal strength at 5/5 x4 extr, Normal tone, Normal affect Lymphatics: No axilla or inguinal lymphadenopathy - Studies Laboratory Data (last 24 hrs) 08/01/21 23:54: WBC 6.50, Hgb 15.0, Hct 43.4, Plt Count 89 L 08/01/21 23:54: Sodium 124 L, Potassium 4.0, BUN 21 H, Creatinine 1.37 H, Glucose 395 H, Magnesium 1.3 L*, Total Bilirubin 2.0 H, AST 77 H, ALT 94 H, Alkaline Phosphatase 100, Lipase 18 L <Jason Valles - Last Filed: 08/02/21 04:31> Assessment and Plan - Problems (Diagnosis) (1) Hyponatremia Status: Acute (2) Hypomagnesemia Status: Acute (3) Thrombocytopenia Status: Acute (4) T2DM (type 2 diabetes mellitus) Status: Chronic Qualifiers: Diabetes mellitus terminal make up operator insulin use: without fpc use Diabetes mellitus complication status: with kidney complications Diabetes mellitus complication detail: with chronic kidney disease Chronic kidney disease stage: unspecified stage Qualified Code(s): E11.22 - Type 2 diabetes mellitus with diabetic chronic kidney disease (5) Alcohol use Status: Chronic (6) Tobacco use Status: Chronic - Plan continue IV fluid replacement and Magnesium replacement monitor BMP and Magnesium CT chest in the AM, may repeat COVID test sliding scale insulin and accucheck, A1c pending alcohol withdrawal protocol DVT ppx Discharge Plan: Home Plan to discharge in: 48 Hours - Advance Directives Does patient have a Living Will: No Does patient have a Durable POA for Healthcare: No - Code Status/Comfort Care Code Status Assessed: Yes (full code ) Critical Care: No Time Spent Managing Pts Care (In Minutes): 70 <Jason Valles - Last Filed: 08/02/21 04:31> - Problems (Diagnosis) (1) Situs inversus Current Visit: Yes Status: Acute (2) Hyponatremia Current Visit: No Status: Acute (3) Alcohol use Current Visit: No Status: Chronic (4) T2DM (type 2 diabetes mellitus) Current Visit: No Status: Chronic Qualifiers: Diabetes mellitus terminal make up operator insulin use: without fpc use Diabetes mellitus complication status: with kidney complications Diabetes mellitus complication detail: with chronic kidney disease Chronic kidney disease stage: unspecified stage Qualified Code(s): E11.22 - Type 2 diabetes mellitus with diabetic chronic kidney disease (5) Tobacco use Current Visit: No Status: Chronic (6) Hypomagnesemia Current Visit: No Status: Acute (7) Hyperglycemia Current Visit: Yes Status: Acute (8) Thrombocytopenia Current Visit: No Status: Acute (9) Delirium tremens Current Visit: Yes Status: Acute (10) AMS (altered mental status) Current Visit: Yes Status: Acute (11) Lung mass Current Visit: Yes Status: Acute <Diana Newton - Last Filed: 08/03/21 10:59> Date of Service: 08/02/21 Subjective Continue with HPI a as mentioned above Review of Systems 10-point ROS is otherwise unremarkable Physical Examination - Vital Signs Reviewed - Physical Exam General: Alert, In no apparent distress, Oriented x3, Confused Respiratory: Clear to auscultation bilaterally, Normal air movement Cardiovascular: Other (Tachycardic) Gastrointestinal: Normal bowel sounds, Soft and benign, Non-distended, No tenderness, Distended Musculoskeletal: No clubbing, No swelling, No tenderness Neurological: Normal strength at 5/5 x4 extr, Sensation intact, Cranial nerves 3-12 intact Assessment & Plan - Problems (Diagnosis) (1) Situs inversus Current Visit: Yes Status: Acute (2) Hyponatremia Current Visit: No Status: Acute (3) Alcohol use Current Visit: No Status: Chronic (4) T2DM (type 2 diabetes mellitus) Current Visit: No Status: Chronic Qualifiers: Diabetes mellitus fpc insulin use: without fpc use Diabetes mellitus complication status: with kidney complications Diabetes mellitus complication detail: with chronic kidney disease Chronic kidney disease stage: unspecified stage Qualified Code(s): E11.22 - Type 2 diabetes mellitus with diabetic chronic kidney disease (5) Tobacco use Current Visit: No Status: Chronic (6) Hypomagnesemia Current Visit: No Status: Acute (7) Hyperglycemia Current Visit: Yes Status: Acute (8) Thrombocytopenia Current Visit: No Status: Acute (9) Delirium tremens Current Visit: Yes Status: Acute (10) AMS (altered mental status) Current Visit: Yes Status: Acute (11) Lung mass Current Visit: Yes Status: Acute - Plan Continue with plan of care as mentioned below: 1. Continue with IV fluids 2. Continue electrolyte replacement 3. Echocardiogram pending 4. Pulmonary consultation pending 5. DT prevention with Librium 6. Nutritional evaluation 7. Monitor LFTs 8. GI and DVT prophylaxis Discharge Plan: Home Plan to discharge in: Greater than 2 days - Advance Directives Does patient have a Living Will: No Does patient have a Durable POA for Healthcare: No - Code Status/Comfort Care Code Status Assessed: Yes Code Status: Full Code Critical Care: No Time Spent Managing PTS Care (In Minutes): 35 <Diana Newton - Last Filed: 08/03/21 10:59>
[2021-08-02] MEDS: NA CHLORIDE 0.9% 1,000 ML IV SCH ×3 (07:59→22:58)
[2021-08-02] MEDS ORDERED: ONDANSETRON 4 MG/2 ML VIAL IV PRN (07:59)
--- NOTE | 2021-08-02 08:36 | RAD REPORT ---
EXAM DESCRIPTION: US - Abdomen Exam Limited - 08/02/2021 4:12 am CLINICAL HISTORY: ABD PAIN COMPARISON: No comparisons FINDINGS: The gallbladder demonstrates no gallstones. No pericholecystic fluid or gallbladder wall t hickening. The common bile duct is normal measuring 4 mm. The liver demonstrates mild fatty liver. IMPRESSION: Mild fatty liver. Negative gallbladder/ biliary tree findings.
[2021-08-02 08:55] LABS: Protime INR 1.1
[2021-08-02 09:26] LABS: ALT/SGPT 78 U/L (12-78); AST/SGOT 71 U/L (15-37); Albumin 2.4 g/dL (3.4-5.0); Alkaline Phosphatase 88 U/L (45-117); BUN Blood Urea Nitrogen 18 mg/dL (7-18); Bicarbonate 22 mmol/L (21-32); Bilirubin Total 1.8 mg/dL (0.2-1.0); Ferritin 4726.1 ng/mL (26-388); Glucose Level 343 mg/dL (74-106); Magnesium 1.7 mg/dL (1.8-2.4); Potassium 3.8 mmol/L (3.5-5.1); Protein, Total 6.2 g/dL (6.4-8.2); Sodium Level 126 mmol/L (136-145)
--- NOTE | 2021-08-02 09:38 | RAD REPORT ---
EXAM DESCRIPTION: CT - Thorax Wo Con CLINICAL HISTORY: Chest pain left lower lobe opacity COMPARISON: Chest Pa And Lat (2 Views) dated 08/01/2021; Chest Pa And Lat (2 Views) dated 10/07/2020 FINDINGS: Situs inversus is present. 27 x 26 mm soft tissue mass lesion is seen in the left lower lo be (image 40/72) appearing adjacent to posterior left tracheobronchial tree. No pleural effusion is e vident. No pneumothorax. No axillary, mediastinal or hilar adenopathy. No concerning bony finding. All CT scans are performed using dose optimization technique as appropriate and may include automated exposure control or mA/KV adjustment according to patient size. IMPRESSION: 27 x 26 mm soft tissue mass in the posterior left lower lobe. Malignancy is the diagnosi s of concern, especially considering the patient's history of smoking. Recommend PET-CT follow-up sukhwinder ging or bronchoscopy for further evaluation.
[2021-08-02] MEDS: INSULIN -REGULAR HUMAN 50 UNIT/0.5 ML ML SQ SCH ×5 (09:55→23:02)
--- NOTE | 2021-08-02 11:44 | RAD REPORT ---
EXAM DESCRIPTION: CT Abdomen and Pelvis Without Intravenous Contrast CLINICAL HISTORY: ABD PAIN TECHNIQUE: Axial computed tomography images of the abdomen and pelvis without intravenous contrast. Sagittal and coronal reformatted images were created and reviewed. This CT exam was performed usi ng one or more of the following dose reduction techniques: automated exposure control, adjustment o f the mA and/or kV according to patient size, and/or use of iterative reconstruction technique. COMPARISON: No relevant prior studies available. FINDINGS: Lung bases: Lobulated left lower lobe opacity measuring 3.3 x 2 x 1.7 cm. ABDOMEN: Liver: Unremarkable. Gallbladder and bile ducts: Unremarkable. No calcified stones. No ductal dilation. Pancreas: Mild fatty placement of the pancreatic parenchyma. No ductal dilation. Spleen: Unremarkable. No splenomegaly. Adrenals: Unremarkable. No mass. Kidneys and ureters: Unremarkable. No obstructing stones. No hydronephrosis. Stomach and bowel: The duodenum does not cross midline. The small bowel is located within the left abdomen and the large bowel within the right abdomen compatible with midgut malrotation. Moderate sto ol. Colonic diverticula without adjacent inflammatory change. No obstruction. No appreciable mucosal thickening. PELVIS: Appendix: Normal caliber appendix. No findings to suggest acute appendicitis. Bladder: Unremarkable. No stones. Reproductive: Unremarkable as visualized. ABDOMEN and PELVIS: Intraperitoneal space: Unremarkable. No free air. No significant fluid collection. Bones/joints: Multilevel spondylosis. No acute fracture. No dislocation. Soft tissues: Small fat-containing umbilical and bilateral inguinal hernias. Vasculature: Mild to moderate atherosclerotic disease. No abdominal aortic aneurysm. Lymph nodes: Unremarkable. No enlarged lymph nodes. Other findings: Situs inversus totalis. IMPRESSION: 1. Moderate stool. No bowel obstruction. 2. Lobulated left lower lobe opacity measuring 3.2 x 2 x 1.7 cm possibly related to focal infiltrat e. Underlying mass/malignancy is not excluded. Recommend prompt non-contrast Chest CT for further tank luation. These guidelines do not apply to immunocompromised patients and patients with cancer. Follow up in patients with significant comorbidities as clinically warranted. For lung cancer screening, ad here to Lung-RADS guidelines. Reference: Radiology. 2017; 284(1):228-43. 3. Other findings as above. Electronically signed by: Kacey Wesley MD 08/02/2021 2:33 AM SUPERVISOR [employer] Due to temporary technical issues with the PACS/Fluency reporting system, reports are being signed by the in house radiologist without review as a courtesy to ensure prompt reporting. The interpreting r adiologist is fully responsible for the content of the report.
[2021-08-02] MEDS: ACETAMINOPHEN 500 MG TAB PO PRN ×2 (12:20→17:00)
[2021-08-02] MEDS ORDERED: ACETAMINOPHEN 500 MG TAB ONE ×2 (12:27→16:56)
[2021-08-02 12:34] LABS: Potassium 3.8 mmol/L (3.5-5.1)
[2021-08-02 19:32] LABS: SARS-COV-2 RT PCR NEGATIVE (NEGATIVE)
[2021-08-02] MEDS ORDERED: ACETAMINOPHEN 500 MG TAB PO ONE (19:55)
[2021-08-02] MEDS: chlordiazePOXIDE HCl 5 MG CAP PO SCH (23:00)
[2021-08-03] MEDS ORDERED: chlordiazePOXIDE HCl 5 MG CAP PO SCH
[2021-08-03 04:06] LABS: Absolute Lymphocytes (CBC) 1.3 K/uL (0.7-4.9); Hematocrit 39.2 % (39.6-49.0); Lymphocytes % 16.8 % (15.3-44.8); MPV 11.7 fL (7.6-11.3); RBC Red Blood Cell Count 4.57 M/uL (4.33-5.43)
[2021-08-03 04:33] LABS: Albumin 2.1 g/dL (3.4-5.0); Bilirubin Total 1.4 mg/dL (0.2-1.0); Magnesium 2.1 mg/dL (1.8-2.4); Phosphorus 2.3 mg/dL (2.5-4.9); Potassium 3.7 mmol/L (3.5-5.1); Protein, Total 5.9 g/dL (6.4-8.2); Thyroid Stimulating Hormone 1.15 uIU/mL (0.360-3.740)
[2021-08-03] MEDS: NA CHLORIDE 0.9% 1,000 ML IV SCH ×3 (04:46→17:00)
[2021-08-03 05:14] LABS: Barbiturates NEGATIVE (NEGATIVE); Benzodiazepines NEGATIVE (NEGATIVE); Cocaine NEGATIVE (NEGATIVE); METHAMPHETAM NEGATIVE (NEGATIVE); Methadone NEGATIVE (NEGATIVE); Opiates NEGATIVE (NEGATIVE); Phencyclidine NEGATIVE (NEGATIVE); THC Cannibis NEGATIVE (NEGATIVE)
[2021-08-03] MEDS: chlordiazePOXIDE HCl 5 MG CAP PO SCH ×4 (06:16→17:23)
[2021-08-03] MEDS: METOPROLOL TAR 25 MG TAB PO SCH ×2 (06:16→17:11)
[2021-08-03] MEDS: ACETAMINOPHEN 500 MG TAB PO PRN ×2 (06:21→11:49)
[2021-08-03] MEDS ORDERED: INFLUENZA VACCINE (for 6+ mo) 0.5 ML DOSE IMVAC ONE (08:00)
[2021-08-03] MEDS: INSULIN -REGULAR HUMAN 50 UNIT/0.5 ML ML SQ SCH ×4 (08:27→20:37)
[2021-08-03] MEDS ORDERED: POTASSIUM CL SA 10 MEQ TAB PO ONE (09:00)
--- NOTE | 2021-08-03 10:57 | P.PN ---
Subjective Date of Service: 08/03/21 Patient appears to be withdrawing. Continue with Librium. Continue with gentle hydration. Echocardiogram pending. Pulmonary consultation as well. Patient with a lung mass. Review of Systems 10-point ROS is otherwise unremarkable Physical Examination - Vital Signs Temperature: 99.6 F Blood Pressure: 101/59 Pulse: 107 Respirations: 23 Pulse Ox (%): 92 - Physical Exam General: Alert, In no apparent distress, Oriented x3, Confused HEENT: Atraumatic, PERRLA, EOMI Neck: Supple, JVD not distended Respiratory: Clear to auscultation bilaterally, Normal air movement Cardiovascular: Other (Tachycardic) Gastrointestinal: Normal bowel sounds, Soft and benign, Non-distended, No tenderness, Distended Musculoskeletal: No clubbing, No swelling, No tenderness Neurological: Normal strength at 5/5 x4 extr, Sensation intact, Cranial nerves 3-12 intact Lymphatics: No axilla or inguinal lymphadenopathy - Studies Medications List Reviewed: Yes Assessment & Plan - Problems (Diagnosis) (1) Situs inversus Current Visit: Yes Status: Acute (2) Hyponatremia Current Visit: No Status: Acute (3) Alcohol use Current Visit: No Status: Chronic (4) T2DM (type 2 diabetes mellitus) Current Visit: No Status: Chronic Qualifiers: Diabetes mellitus residential insulin use: without rat exterminator use Diabetes mellitus complication status: with kidney complications Diabetes mellitus complication detail: with chronic kidney disease Chronic kidney disease stage: unspecified stage Qualified Code(s): E11.22 - Type 2 diabetes mellitus with diabetic chronic kidney disease (5) Tobacco use Current Visit: No Status: Chronic (6) Hypomagnesemia Current Visit: No Status: Acute (7) Hyperglycemia Current Visit: Yes Status: Acute (8) Thrombocytopenia Current Visit: No Status: Acute (9) Delirium tremens Current Visit: Yes Status: Acute (10) AMS (altered mental status) Current Visit: Yes Status: Acute (11) Lung mass Current Visit: Yes Status: Acute - Plan Plan: 1. Continue with IV fluids 2. Continue electrolyte replacement 3. Echocardiogram 4. Pulmonary consultation 5. DT prevention with Librium 6. Nutritional evaluation 7. Monitor LFTs 8. GI and DVT prophylaxis Discharge Plan: Home Plan to discharge in: Greater than 2 days - Advance Directives Does patient have a Living Will: No Does patient have a Durable POA for Healthcare: No - Code Status/Comfort Care Code Status Assessed: Yes Code Status: Full Code Critical Care: No Time Spent Managing PTS Care (In Minutes): 35
[2021-08-03] MEDS ORDERED: PIPER TAZO 3.375 GM in NA CHLORIDE 0.9% 100 ML IV SCH (12:30)
--- NOTE | 2021-08-03 12:50 | P.CNS ---
Date of Consult: 08/03/21 Reason for Consult: Left lower lobe mass Chief Complaint: Lower lobe lung mass History of Present Illness: Patient is 56 years of age alcoholic diabetic heavy smoker admitted with abdominal pain he reports fever malaise ear pain cough nausea vomiting currently unresponsive delirious agitated unable to obtain any history taking Machelle Salcedo/patient has a left lower lobe lung mass with situs inversus probably having alcohol withdrawals right now Allergies iodine Allergy (Verified 08/02/21 22:48) Itching/Hives/Rash Home Medications: Metformin HCl 2,000 mg PO BID 08/02/21 - Past Medical/Surgical History -: situs inversus totalis -: T2DM - Family History Mother Medical History: Cancer Father Medical History: Other (see notes) Notes: suicide - Social History Smoking Status: Current every day smoker Alcohol use: Yes CD- Drugs: No Caffeine use: Yes Place of Residence: Home Review of Systems is unable to be obtained Physical Examination Temp Pulse Resp BP Pulse Ox 100.6 F 123 H 34 H 121/60 92 08/03/21 12:00 08/03/21 12:00 08/03/21 12:00 08/03/21 12:00 08/03/21 12:00 General: Delirious, Unresponsive HEENT: Atraumatic Neck: Supple Respiratory: Clear to auscultation bilaterally - Problems (1) Lung mass Current Visit: Yes Status: Acute Plan: Patient is 56 years of age currently delirious alcohol withdrawal he does have a left lower lobe lung mass with situs inversus patient has hyponatremia suspected due to volume depletion can DC Zosyn for now no evidence of active sepsis continue with levofloxacin blood cultures are pending patient is on steroids IV fluids as far as a left lung mass is concerned will need to be followed up in a month or so with a repeat CT scan he is high risk for lung cancer currently not stable for any biopsy vital signs oxygenation stable patient had some fever
[2021-08-03 13:43] LABS: Magnesium 1.9 mg/dL (1.8-2.4); Thyroid Stimulating Hormone 1.08 uIU/mL (0.360-3.740)
[2021-08-03] MEDS: Levofloxacin 750mg IV 750 MG/150 ML BAG IV SCH (14:01)
[2021-08-03] MEDS: METHYLPREDNISOLONE 125 MG INJ IV SCH ×2 (14:01→17:24)
[2021-08-03] MEDS: ACETAMINOPHEN 500 MG TAB PO SCH ×2 (17:11→21:54)
--- NOTE | 2021-08-03 17:11 | RAD REPORT ---
EXAM DESCRIPTION: RAD - Chest Single View - 08/03/2021 5:05 pm CLINICAL HISTORY: dyspnea Chest pain. COMPARISON: Chest Pa And Lat (2 Views) dated 08/01/2021; Chest Pa And Lat (2 Views) dated 10/07/2020; Thorax Wo Con dated 08/02/2021 FINDINGS: Portable technique limits examination quality. Moderate bilateral pulmonary opacities are present, greater on the left. The findings likely represen t pneumonia/ infection and appears significantly worse relative to prior study. The heart is normal i n size. No displaced fractures.
[2021-08-03] MEDS: INSULIN GLARGINE 100 UNIT/ML SQ SCH (17:24)
[2021-08-03] MEDS ORDERED: ALBUMIN HUMAN 25% 200 ML IV ONE (18:00)
[2021-08-03] MEDS ORDERED: NA CHLORIDE 0.9% 500 ML IV PRN (20:14)
[2021-08-03 23:56] LABS: Urine Appearance CLEAR (Clear); Urine Blood NEGATIVE (Negative); Urine Color DK YELLOW (Yellow); Urine Glucose 3+ (Negative); Urine Protein 1+ (Negative); Urine Specific Gravity 1.025 (1.005-1.030)
[2021-08-04] LABS: Urine Bilirubin NEGATIVE (Negative)
[2021-08-04 00:07] LABS: Urine Bacteria 20-50 /HPF (NONE SEEN); Urine Coarse Granular Casts 0-5 /LPF (NONE SEEN); Urine Mucus 1+ /HPF (NONE SEEN); Urine RBC <5 /HPF (NONE SEEN)
[2021-08-04] MEDS: METHYLPREDNISOLONE 125 MG INJ IV SCH ×3 (00:10→12:00)
[2021-08-04] MEDS: chlordiazePOXIDE HCl 5 MG CAP PO SCH ×3 (00:10→17:56)
[2021-08-04] MEDS: NA CHLORIDE 0.9% 1,000 ML IV SCH (00:13)
[2021-08-04] MEDS: ACETAMINOPHEN 500 MG TAB PO SCH ×4 (04:10→22:34)
[2021-08-04 04:45] LABS: HBsAG Nonreactive (Nonreactive)
[2021-08-04] MEDS: METOPROLOL TAR 25 MG TAB PO SCH ×2 (05:17→17:55)
[2021-08-04 06:22] LABS: Absolute Lymphocytes (CBC) 1.1 K/uL (0.7-4.9); Hematocrit 39.9 % (39.6-49.0); Lymphocytes % 18.1 % (15.3-44.8); MPV 11.3 fL (7.6-11.3); RBC Red Blood Cell Count 4.57 M/uL (4.33-5.43)
[2021-08-04 08:45] LABS: ALT/SGPT 47 U/L (12-78); AST/SGOT 37 U/L (15-37); Albumin 2.2 g/dL (3.4-5.0); Alkaline Phosphatase 77 U/L (45-117); BUN Blood Urea Nitrogen 27 mg/dL (7-18); Bicarbonate 25 mmol/L (21-32); Folic Acid, (Folate) 14.4 ng/mL (3.1-17.5); Glucose Level 315 mg/dL (74-106); Magnesium 2.4 mg/dL (1.8-2.4); Phosphorus 3.9 mg/dL (2.5-4.9); Potassium 4.1 mmol/L (3.5-5.1); Protein, Total 6.1 g/dL (6.4-8.2); Sodium Level 132 mmol/L (136-145)
[2021-08-04] MEDS ORDERED: VANCOMYCIN 1 GM in NA CHLORIDE 0.9% 250 ML IVPB ONE (10:00)
--- NOTE | 2021-08-04 10:01 | RAD REPORT ---
EXAM DESCRIPTION: RAD - Chest Single View - 08/04/2021 5:13 am CLINICAL HISTORY: Pneumonia Chest pain. COMPARISON: Chest Single View dated 08/03/2021; Chest Pa And Lat (2 Views) dated 08/01/2021; Chest P a And Lat (2 Views) dated 10/07/2020 FINDINGS: Portable technique limits examination quality. Moderate bilateral pulmonary opacities are present, mildly worse on the left since comparative study. The heart is normal in size. No displaced fractures. IMPRESSION: Mild worsening in pneumonia pattern, particularly on the left, since yesterday's study.
[2021-08-04] MEDS: VANCOMYCIN 2 GM in NA CHLORIDE 0.9% 500 ML IVPB SCH ×2 (10:08→21:34)
[2021-08-04] MEDS: INSULIN -REGULAR HUMAN 50 UNIT/0.5 ML ML SQ SCH ×4 (10:09→21:32)
--- NOTE | 2021-08-04 12:25 | P.PN ---
Subjective Date of Service: 08/04/21 Chief Complaint: Lower lobe lung mass Subjective: Improving (Patient is improving he is doing well more alert oriented responsive) Review of Systems 10-point ROS is otherwise unremarkable General: Weakness Respiratory: Shortness of Breath Physical Examination - Vital Signs Temperature: 97.0 F Blood Pressure: 118/80 Pulse: 75 Respirations: 24 Pulse Ox (%): 94 - Physical Exam General: Alert, Oriented x3 HEENT: Atraumatic Neck: Supple Respiratory: Clear to auscultation bilaterally Cardiovascular: No edema, Normal S1 S2 - Studies Medications List Reviewed: Yes Assessment & Plan - Problems (Diagnosis) (1) Lung mass Current Visit: Yes Status: Acute Plan: Patient has left lower lung lung mass with situs inversus will need work-up as an outpatient he is high risk for lung cancer continues to smoke (2) Alcohol use Current Visit: No Status: Chronic Plan: History of alcohol abuse doing much better hyponatremia resolved no evidence of clinical sepsis blood cultures show gram-positive cocci in clusters patient was started on vancomycin is also on levofloxacin continue with present therapy is improving eating and drinking/most likely is contaminant current normal white count possible discharge in 1 to 2 days change to p.o. prednisone most likely has underlying COPD I also added Dulera his x-ray does look a little worse today (3) Pneumonia Current Visit: Yes Status: Acute Plan: Possible pneumonia his got some haziness on the right side patient also has situs inversus continue with levofloxacin no clinical evidence of sepsis his white count is normal no longer has a fever Qualifiers: Laterality: right Discharge Plan: Home Plan to discharge in: 48 Hours
[2021-08-04] MEDS: Levofloxacin 750mg IV 750 MG/150 ML BAG IV SCH (12:37)
[2021-08-04] MEDS: DULERA 200/5 (MOMETASONE/FORMOTEROL) INHALER IH SCH ×2 (12:38→21:29)
[2021-08-04] MEDS ORDERED: FUROSEMIDE 20 MG/ 2ML VIAL IV ONE (14:02)
[2021-08-04] MEDS ORDERED: INSULIN 70/30 100 UNITS/ML SQ ONE (14:03)
[2021-08-04 14:25] LABS: HIV AG/AB 4TH GEN Non-reactive (Non-reactive)
--- NOTE | 2021-08-04 17:25 | P.PN ---
Date of Service: 08/04/21 Subjective Patient clinical symptoms have worsened. Patient more short of breath. Patient also slightly hypoxic. Concern for sepsis. Continue with broader spectrum antibiotic coverage. Blood cultures pending. Review of Systems 10-point ROS is otherwise unremarkable Physical Examination - Vital Signs Reviewed - Physical Exam General: Alert, In no apparent distress, Oriented x3, Confused Respiratory: Clear to auscultation bilaterally, Normal air movement Cardiovascular: Other (Tachycardic) Gastrointestinal: Normal bowel sounds, Soft and benign, Non-distended, No tenderness, Distended Musculoskeletal: No clubbing, No swelling, No tenderness Neurological: Normal strength at 5/5 x4 extr, Sensation intact, Cranial nerves 3-12 intact Assessment & Plan - Problems (Diagnosis) (1) Pneumonia/sepsis/hypoxemia Current Visit: Yes Status: Acute (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 (3) Alcohol use Current Visit: No Status: Chronic (4) T2DM (type 2 diabetes mellitus) Current Visit: No Status: Chronic Qualifiers: Diabetes mellitus penitentiary insulin use: without penitentiary use Diabetes m ellitus complication status: with kidney complications Diabetes mellitus complication detail: with chronic kidney disease Chronic kidney disease stage: unspecified stage Qualified Code(s): E11.22 - Type 2 diabetes mellitus with diabetic chronic kidney disease (5) Tobacco use Current Visit: No Status: Chronic (6) Hypomagnesemia Current Visit: No Status: Acute (7) Hyperglycemia Current Visit: Yes Status: Acute (8) Thrombocytopenia Current Visit: No Status: Acute (9) Delirium tremens Current Visit: Yes Status: Acute (10) AMS (altered mental status) Current Visit: Yes Status: Acute (11) Lung mass Current Visit: Yes Status: Acute - Plan Plan: 1. Continue with IV fluids and broaden antibiotic coverage 2. Continue electrolyte replacement 3. Echocardiogram pending 4. Pulmonary consultation appreciated; follow-up for lung mass 5. DT prevention with Librium; continue to taper 6. Nutritional evaluation 7. Monitor LFTs 8. GI and DVT prophylaxis Discharge Plan: Home Plan to discharge in: Greater than 2 days - Advance Directives Does patient have a Living Will: No Does patient have a Durable POA for Healthcare: No - Code Status/Comfort Care Code Status Assessed: Yes Code Status: Full Code Critical Care: No Time Spent Managing PTS Care (In Minutes): 35
[2021-08-04] MEDS: FUROSEMIDE 20 MG/ 2ML VIAL IV SCH (17:55)
[2021-08-04] MEDS: INSULIN GLARGINE 100 UNIT/ML SQ SCH (17:57)
[2021-08-04] MEDS: NICOTINE 21 MG/PAT TD SCH (18:19)
[2021-08-04] MEDS: predniSONE 20 MG TAB PO SCH (21:30)
[2021-08-05] MEDS: chlordiazePOXIDE HCl 5 MG CAP PO SCH ×5 (00:54→23:50)
[2021-08-05] MEDS: METOPROLOL TAR 25 MG TAB PO SCH ×2 (05:37→17:26)
[2021-08-05] MEDS: INSULIN -REGULAR HUMAN 50 UNIT/0.5 ML ML SQ SCH ×4 (08:09→21:00)
[2021-08-05] MEDS ORDERED: D50W 25 GM/50 ML SYRINGE IV PRN (08:46)
[2021-08-05] MEDS ORDERED: GLUCAGON 1 MG/VIAL IM PRN (08:46)
[2021-08-05 08:55] VITALS: BMI 32.5
[2021-08-05] MEDS: FUROSEMIDE 20 MG/ 2ML VIAL IV SCH ×2 (09:14→17:25)
[2021-08-05] MEDS: NICOTINE 21 MG/PAT TD SCH (09:15)
[2021-08-05] MEDS: predniSONE 20 MG TAB PO SCH ×2 (09:15→21:00)
[2021-08-05] MEDS: DULERA 200/5 (MOMETASONE/FORMOTEROL) INHALER IH SCH ×2 (09:26→21:00)
[2021-08-05] MEDS ORDERED: INSULIN 70/30 100 UNITS/ML SQ ONE (10:00)
[2021-08-05] MEDS: VANCOMYCIN 2 GM in NA CHLORIDE 0.9% 500 ML IVPB SCH ×2 (11:24→22:30)
[2021-08-05] MEDS: Levofloxacin 750mg IV 750 MG/150 ML BAG IV SCH (12:11)
[2021-08-05] MEDS: INSULIN GLARGINE 100 UNIT/ML SQ SCH (17:35)
[2021-08-05 22:26] VITALS: O2SAT 96
[2021-08-06] MEDS: chlordiazePOXIDE HCl 5 MG CAP PO SCH (05:39)
[2021-08-06] MEDS: METOPROLOL TAR 25 MG TAB PO SCH ×2 (05:39→17:22)
[2021-08-06] MEDS: VANCOMYCIN 2 GM in NA CHLORIDE 0.9% 500 ML IVPB SCH (09:00)
[2021-08-06] MEDS: INSULIN -REGULAR HUMAN 50 UNIT/0.5 ML ML SQ SCH ×4 (09:21→22:12)
[2021-08-06] MEDS: DULERA 200/5 (MOMETASONE/FORMOTEROL) INHALER IH SCH ×2 (09:21→22:12)
[2021-08-06] MEDS: NICOTINE 21 MG/PAT TD SCH (09:21)
[2021-08-06] MEDS: FUROSEMIDE 20 MG/ 2ML VIAL IV SCH (09:22)
[2021-08-06] MEDS: predniSONE 20 MG TAB PO SCH ×2 (09:23→22:12)
[2021-08-06] MEDS ORDERED: chlordiazePOXIDE HCl 5 MG CAP PO PRN (10:53)
--- NOTE | 2021-08-06 10:54 | P.PN ---
Subjective Date of Service: 08/06/21 Chief Complaint: Alcohol withdrawal Subjective: Improving (Patient is improving no new complaints) Review of Systems Unremarkable Physical Examination - Vital Signs Temperature: 97.6 F Blood Pressure: 115/58 Pulse: 75 Respirations: 22 Pulse Ox (%): 97 - Physical Exam General: Alert, Oriented x3 Respiratory: Clear to auscultation bilaterally Cardiovascular: No edema, Normal S1 S2 - Studies Medications List Reviewed: Yes Assessment & Plan - Problems (Diagnosis) (1) Lung mass Current Visit: Yes Status: Acute Plan: Patient has left lower lung lung mass with situs inversus will need work-up as an outpatient he is high risk for lung cancer continues to smoke (2) Alcohol use Current Visit: No Status: Chronic Plan: Patient is doing well (3) Pneumonia Current Visit: Yes Status: Acute Plan: No fever no evidence of sepsis white count is normal DC antibiotics plan for discharge I suspect he has COPD continue with his inhaler low-dose prednisone patient's oxygenation is normal chest x-ray Qualifiers: Laterality: left
--- NOTE | 2021-08-06 12:26 | RAD REPORT ---
EXAM DESCRIPTION: RAD - Chest Single View - 08/06/2021 11:58 am CLINICAL HISTORY: Possible pneumonia COMPARISON: August 04, August 03 TECHNIQUE: AP portable chest image was obtained 08/06/2021 11:58 am . FINDINGS: Interstitial and alveolar opacification in the mid and lower right lung field has shown im provement since August 04. No progressive lung parenchymal process. Situs inversus again noted. No measurable pleural effusion and no pneumothorax. No acute bony abnormality seen. No acute aortic findings suspected. IMPRESSION: Significant but incomplete clearing of the right-sided pneumonia findings since August 04 imaging.
--- NOTE | 2021-08-06 13:50 | P.PN ---
Date of Service: 08/05/21 Subjective Patient is starting to feel better. Lactic gas was elevated. Pro calcitonin was still elevated. Continue with aggressive treatment. Wean off of oxygen. Review of Systems 10-point ROS is otherwise unremarkable Physical Examination - Vital Signs Reviewed - Physical Exam General: Alert, In no apparent distress, Oriented x3, mentation is improved Respiratory: Clear to auscultation bilaterally, Normal air movement Cardiovascular: Regular rate rhythm with no murmurs Gastrointestinal: Normal bowel sounds, Soft and benign, Non-distended, No tenderness, Distended Musculoskeletal: No clubbing, No swelling, No tenderness Neurological: No focal deficits Assessment & Plan - Problems (Diagnosis) (1) Pneumonia/sepsis/hypoxemia Current Visit: Yes Status: Acute (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 (3) Alcohol use Current Visit: No Status: Chronic (4) T2DM (type 2 diabetes mellitus) Current Visit: No Status: Chronic Qualifiers: Diabetes mellitus fdc insulin use: without fdc use Diabetes mellitus complication status: with kidney complications Diabetes mellitus complication detail: with chronic kidney disease Chronic kidney disease stage: unspecified stage Qualified Code(s): E11.22 - Type 2 diabetes mellitus with diabetic chronic kidney disease (5) Tobacco use Current Visit: No Status: Chronic (6) Hypomagnesemia Current Visit: No Status: Acute (7) Hyperglycemia Current Visit: Yes Status: Acute (8) Thrombocytopenia Current Visit: No Status: Acute (9) Delirium tremens Current Visit: Yes Status: Acute (10) AMS (altered mental status) Current Visit: Yes Status: Acute (11) Lung mass Current Visit: Yes Status: Acute - Plan Plan: 1. Continue with IV fluids and broaden antibiotic coverage; 2. Continue electrolyte replacement 3. Echocardiogram revealed ejection fraction of 40%.; continue with diuresing- with IV Lasix. 4. Pulmonary consultation appreciated; follow-up for lung mass 5. DT prevention with Librium; continue to taper 6. Nutritional evaluation 7. Monitor LFTs 8. GI and DVT prophylaxis Discharge Plan: Home Plan to discharge in: Greater than 2 days - Advance Directives Does patient have a Living Will: No Does patient have a Durable POA for Healthcare: No - Code Status/Comfort Care Code Status Assessed: Yes Code Status: Full Code Critical Care: No Time Spent Managing PTS Care (In Minutes): 35
--- NOTE | 2021-08-06 13:52 | P.PN ---
Date of Service: 08/06/21 Subjective Patient clinical symptoms continued to improve. Patient off of oxygen. Still gets short of breath when ambulating. Continue with therapy at this time. Review of Systems 10-point ROS is otherwise unremarkable Physical Examination - Vital Signs Reviewed - Physical Exam General: Alert, In no apparent distress, Oriented x3, mentation is improved Respiratory: Clear to auscultation bilaterally, Normal air movement Cardiovascular: Regular rate rhythm with no murmurs Gastrointestinal: Normal bowel sounds, Soft and benign, Non-distended, No tenderness, Distended Musculoskeletal: No clubbing, No swelling, No tenderness Neurological: No focal deficits Assessment & Plan - Problems (Diagnosis) (1) Pneumonia/sepsis/hypoxemia Current Visit: Yes Status: Acute (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 (3) Alcohol use Current Visit: No Status: Chronic (4) T2DM (type 2 diabetes mellitus) Current Visit: No Status: Chronic 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 Diabetes mellitus complication status: with kidney complications Diabetes mellitus co mplication detail: with chronic kidney disease Chronic kidney disease stage: unspecified stage Qualified Code(s): E11.22 - Type 2 diabetes mellitus with diabetic chronic kidney disease (5) Tobacco use Current Visit: No Status: Chronic (6) Hypomagnesemia Current Visit: No Status: Acute (7) Hyperglycemia Current Visit: Yes Status: Acute (8) Thrombocytopenia Current Visit: No Status: Acute (9) Delirium tremens Current Visit: Yes Status: Acute (10) AMS (altered mental status) Current Visit: Yes Status: Acute (11) Lung mass Current Visit: Yes Status: Acute - Plan Continue with plan of care as mentioned below: 1. Continue with IV fluids and continue antibiotic coverage. Change to oral antibiotics 2. Monitor electrolytes 3. Echocardiogram revealed ejection fraction of 40%.; continue with diuresing- change to oral Lasix 4. Pulmonary consultation appreciated; follow-up for lung mass 5. DT prevention with Librium; continue to taper 6. Nutritional evaluation 7. Outpatient home health with physical therapy; patient sternum build up his strength. Still short of breath on ambulating
[2021-08-06 13:55] LABS: Absolute Lymphocytes (CBC) 1.6 K/uL (0.7-4.9); Hematocrit 40.9 % (39.6-49.0); Lymphocytes % 20.5 % (15.3-44.8); MPV 10.3 fL (7.6-11.3); RBC Red Blood Cell Count 4.74 M/uL (4.33-5.43)
[2021-08-06 14:11] LABS: Albumin 2.5 g/dL (3.4-5.0); Bilirubin Total 0.8 mg/dL (0.2-1.0); Potassium 3.8 mmol/L (3.5-5.1); Protein, Total 6.7 g/dL (6.4-8.2)
[2021-08-06 14:34] LABS: Blood Morphology Comment NOT SEEN (NOT SEEN); Platelet Estimate ADEQ; White Blood Cell Scan OK (OK)
[2021-08-06] MEDS: INSULIN GLARGINE 100 UNIT/ML SQ SCH (17:23)
[2021-08-07] MEDS: METOPROLOL TAR 25 MG TAB PO SCH (06:35)
--- NOTE | 2021-08-07 07:31 | RAD REPORT ---
EXAM DESCRIPTION: RAD - Chest Single View - 08/07/2021 5:53 am CLINICAL HISTORY: Possible pneumonia COMPARISON: Chest Single View dated 08/06/2021; Chest Single View dated 08/04/2021; Chest Single View dated 08/03/2021; Chest Pa And Lat (2 Views) dated 08/01/2021; Thorax Wo Con dated 08/02/2021 FINDINGS: Lines: None. Lungs: No evidence of edema or pneumonia. Left lower lobe lesion identified on the chest CT from 07/07 is better demonstrated on CT. Pleural: No significant pleural effusions or pneumothorax. Cardiac: The heart size is within normal limits. Bones: No acute fractures. Other: IMPRESSION: No acute cardiopulmonary disease. Improved aeration of the lungs over the preceding brynn ral days. The left lower lobe masslike process on the chest CT from 08/02/2021 is not well appreciate d on radiograph. Suggest either short-term CT follow-up versus PET-CT to ensure resolution and exclud e malignancy.
[2021-08-07] MEDS: INSULIN -REGULAR HUMAN 50 UNIT/0.5 ML ML SQ SCH ×2 (08:00→12:31)
[2021-08-07 08:07] LABS: BUN Blood Urea Nitrogen 21 mg/dL (7-18); Bicarbonate 23 mmol/L (21-32); Glucose Level 200 mg/dL (74-106); Sodium Level 137 mmol/L (136-145)
[2021-08-07 08:17] LABS: Potassium 4.1 mmol/L (3.5-5.1)
[2021-08-07] MEDS: DULERA 200/5 (MOMETASONE/FORMOTEROL) INHALER IH SCH (09:00)
[2021-08-07] MEDS: predniSONE 20 MG TAB PO SCH (09:59)
[2021-08-07] MEDS: NICOTINE 21 MG/PAT TD SCH (09:59)
[2021-08-07 11:41] VITALS: BP 119/70; TEMP 96.8
--- NOTE | 2021-08-07 23:58 | P.DS ---
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 Manning is a 56 yo M with T2DM, alcohol use (6 pack of beer a day) and tobacco use (1 ppd) disorder who presents with five days of left upper and left lower quadrant abdominal pain. He also reports fever, malaise, ear pain, cough, nausea and vomiting. Denies diarrhea and shortness of breath. He has been taking Dayquil, ibuprofen and alkaseltzer at home with no relief. He last ate 3 days ago, but still has been trying to drink fluids. He last took his metformin 2 days ago. Plt 89 Na 124 Cl 89 BUN 21 Cr 1.37 GFR 54 Glu 395 Mg 1.3 Tbili 1.2 Dbili 1.4 AST 77 ALT 94 albumin 2.[address] Abdomen shows moderate stool with no bowel obstruction, lobulated left lower lobe opacity possibly related to focal infiltrate but underlying mass/malignancy is not excluded. Abdominal ultrasound showed fatty liver, no gallstones, normal CBD. Hospital Course: Patient was worked up and was found have pneumonia with sepsis. Patient was given broad-spectrum antibiotic in his clinical symptoms have improved. Patient was very sick for a couple of days before he turned around. Patient is building his strength up and he is clinically doing better. He does have some evidence of cirrhosis. His lactic acid was elevated. Patient will need to be monitor as an outpatient. Continue with antibiotics. Follow up as an outpatient with PCP and Gastroenterology. At this time, patient is stable for discharge. Vital Signs/Physical Exam: Temp Pulse Resp BP Pulse Ox 96.8 F 72 18 119/70 96 08/07/21 15:35 08/07/21 15:35 08/07/21 15:35 08/07/21 15:35 08/07/21 15:35 General: Alert, In no apparent distress, Oriented x3 Laboratory Data at Discharge: WBC 7.90 K/uL (4.3-10.9) D 08/06/21 13:46 Hgb 13.7 g/dL (13.6-17.9) 08/06/21 13:46 Hct 40.9 % (39.6-49.0) 08/06/21 13:46 Plt Count 189 K/uL (152-406) D 08/06/21 13:46 PT 12.7 SECONDS (9.5-12.5) H 08/02/21 08:26 INR 1.10 08/02/21 08:26 APTT 27.0 SECONDS (24.3-36.9) 08/02/21 08:26 Sodium 137 mmol/L (136-145) 08/07/21 07:22 Potassium 4.1 mmol/L (3.5-5.1) 08/07/21 07:22 BUN 21 mg/dL (7-18) H 08/07/21 07:22 Creatinine 0.87 mg/dL (0.55-1.3) 08/07/21 07:22 Glucose 200 mg/dL (74-106) H 08/07/21 07:22 Phosphorus 3.9 mg/dL (2.5-4.9) D 08/04/21 07:55 Magnesium 2.0 mg/dL (1.8-2.4) 08/06/21 13:46 Total Bilirubin 0.8 mg/dL (0.2-1.0) 08/06/21 13:46 AST 54 U/L (15-37) H 08/06/21 13:46 ALT 54 U/L (12-78) 08/06/21 13:46 Alkaline Phosphatase 102 U/L (45-117) 08/06/21 13:46 Triglycerides 272 mg/dL (<150) H 08/03/21 03:47 Cholesterol 73 mg/dL (<200) 08/03/21 03:47 HDL Cholesterol 9 mg/dL (40-60) L 08/03/21 03:47 Cholesterol/HDL Ratio 8.11 08/03/21 03:47 Lipase 29 U/L (73-393) L 08/03/21 12:47 Home Medications: Metformin HCl 2,000 mg PO BID 08/02/21 Insulin Glargine,Hum.rec.anlog [Lantus] 20 unit SQ BEDTIME #2 vial 08/07/21 Metoprolol Tartrate [Lopressor] 50 mg PO BID #60 tab 08/07/21 Mometasone/Formoterol [Dulera 200 Mcg/5 Mcg Inhaler] 2 puff IH BID #1 inhaler 08/07/21 Nicotine [Nicoderm*] 21 mg TD DAILY #30 patch.td24 08/07/21 chlordiazePOXIDE HCl [Chlordiazepoxide HCl] 10 mg PO BID PRN #30 capsule 08/07/21 levoFLOXacin [Levaquin] 500 mg PO DAILY #5 tab 08/07/21 predniSONE [Deltasone] 20 mg PO BID #11 tab 08/07/21 New Medications: chlordiazePOXIDE HCl [Chlordiazepoxide HCl] 10 mg PO BID PRN #30 capsule PRN Reason: anxiety/prevent withdrawals Mometasone/Formoterol [Dulera 200 Mcg/5 Mcg Inhaler] 2 puff IH BID #1 inhaler Insulin Glargine,Hum.rec.anlog [Lantus] 20 unit SQ BEDTIME #2 vial levoFLOXacin [Levaquin] 500 mg PO DAILY #5 tab Metoprolol Tartrate [Lopressor] 50 mg PO BID #60 tab Nicotine [Nicoderm*] 21 mg TD DAILY #30 patch.td24 predniSONE [Deltasone] 20 mg PO BID #11 tab Physician Discharge Instructions: OK TO DC IV AND DC HOME FOLLOW-UP WITH PRIMARY CARE PROVIDER IN 1-2 WEEKS FOLLOW-UP WITH CARDIOLOGY and Pulmonary IN 1-2 WEEKS RETURN TO THE ER IF symptoms worsen CALL or TEXT DR. MOROCHO AT [phone] IF ANY QUESTIONS REGARDING HOSPITAL STAY. PLEASE CALL THE FLOOR AT [phone] IF ANY MEDICATION OR NURSING QUESTIONS. Diet: AHA Activity: Fall precautions Followup: NONE,NONE [Primary Care Provider] - Time spent managing pt's care (in minutes): 35
--- NOTE | 2021-08-08 08:21 | ECHO ---
HEIGHT: 5 ft 11 in WEIGHT: 233 lb 0 oz DATE OF STUDY: 08/03/[address]: Diana Newton MD 2-DIMENSIONAL: YES M.MODE: YES DOPPLER: YES COLOR FLOW: YES TDS: YES PORTABLE: DEFINITY: BUBBLE STUDY: DIAGNOSIS: CONGESTIVE HEART FAILURE CARDIAC HISTORY: CATHERIZATION: NO SURGERY: NO PROSTHETIC VALVE: NO PACEMAKER: NO MEASUREMENTS (cm) DIASTOLIC (NORMALS) SYSTOLIC (NORMALS) IVSd 0.9 (0.6-1.2) LA Diam 2.8 (1.9-4.0) LVEF 35% LVIDd 5.1 (3.5-5.7) LVIDs 4.2 (2.0-3.5) %FS 17% LVPWd 1.1 (0.6-1.2) Ao Diam 3.2 (2.0-3.7) 2 DIMENSIONAL ASSESSMENT: POOR STUDY RIGHT ATRIUM: LEFT ATRIUM: RIGHT VENTRICLE: LEFT VENTRICLE: TRICUSPID VALVE: MITRAL VALVE: PULMONIC VALVE: AORTIC VALVE: PERICARDIAL EFFUSION: AORTIC ROOT: LEFT VENTRICULAR WALL MOTION: DOPPLER/COLOR FLOW: COMMENTS: VERY LIMITED WINDOWS. LEFT VENTRICULAR EJECTION FRACTION APPEARS MODERATELY DEPRESSED 30-35%. TECHNOLOGIST: RODO BERMAN
== END 2021-08-07 16:26 | disposition home or self-care (01) | DRG 871 ==
LOC: ER 18:31 → ERHOLD 08-02 04:25 → 2ND 08-02 22:15
PROVIDERS: ADMIT Hospitalist; ATTEND Hospitalist
DX: A41.9 Sepsis, unspecified organism (principal); J18.9 Pneumonia, unspecified organism; E87.1 Hypo-osmolality and hyponatremia; Q89.3 Situs inversus; F10.231 Alcohol dependence with withdrawal delirium; F17.210 Nicotine dependence, cigarettes, uncomplicated; E83.42 Hypomagnesemia; K76.0 Fatty (change of) liver, not elsewhere classified; D69.6 Thrombocytopenia, unspecified; N18.9 Chronic kidney disease, unspecified; E11.22 Type 2 diabetes mellitus with diabetic chronic kidney disease; E11.65 Type 2 diabetes mellitus with hyperglycemia; K74.60 Unspecified cirrhosis of liver; R09.02 Hypoxemia; R91.8 Other nonspecific abnormal finding of lung field; Z91.048 Other nonmedicinal substance allergy status; Z79.84 Long term (current) use of oral hypoglycemic drugs; Z79.4 Long term (current) use of insulin; Z79.52 Long term (current) use of systemic steroids; Z79.899 Other long term (current) drug therapy; Z20.822 Contact with and (suspected) exposure to COVID-19
CPT/HCPCS: 0240U; 36415; 71045; 71046; 71250; 74176; 76705; 80048; 80053; 80061; 80074; 80076; 80202; 80307; 80320; 80329; 81001; 81003; 81015; 82010; 82533; 82607; 82728; 82746; 82947; 83036; 83540; 83605; 83690; 83735; 83880; 84100; 84145; 84439; 84443; 85025; 85610; 85730; 86140; 87040; 87086; 87088; 87205; 87389; 87520; 87522; 93005; 93306; 94760; 96374; 96375; 99284; J1815; J1940; J2405; J2543; J2930; J3370; J3475; J7030; J7040; J7512; J7606; P9047

== ENCOUNTER 2022-09-01 23:27 | Inpatient (IN) | payer SELFPAY ==
--- OUTSIDE RECORDS SUMMARY | 2022-09-01 23:31 | XMS REPORT | Continuity of Care Document ---
:1965 Author Organization [facility] t Address [address] [place] [address] Dr. Cotton [address] [place] [id number] Care Team Providers Name Role Phone MALIKA Attending Clinician Unavailable MALIKA Admitting Clinician Unavailable Payers Payer Name Policy Type Policy Number Effective Date Expiration Date Yonis cunningham [facility]: YURIY [id number] 2022 ADVANTAGE (O) 00:00:00 Problems This patient has no known problems. Allergies, Adverse Reactions, Alerts This patient has no known allergies or adverse reactions. Medications This patient has no known medications. Procedures This patient has no known procedures. Encounters Start End Encounter Admission Attending Care Care Encounter Source Date/Time Date/Time Type Type Clinicians Facility Department ID 2022-07-26 2022-07-26 Outpatient NACHO_RISHI VASQUEZ [facility] [id number] [place] 00:00:00 00:00:00 _ANN [id number] [facility] 2022-05-04 2022-05-04 Outpatient KATRINA VASQUEZ [facility] [id number] [place] 00:00:00 00:00:00 _ANN [id number] [facility] 2022-04-19 2022-04-19 Outpatient NACHO_RISHI CTMARYLU [facility] [id number] [place] 00:00:00 00:00:00 _ANN [id number] [facility] Results This patient has no known results.
[2022-09-02 01:03] LABS: Absolute Lymphocytes (CBC) 1.6 K/uL (0.7-4.9); Hematocrit 42.2 % (39.6-49.0); Lymphocytes % 20.2 % (15.3-44.8); MCV 89.1 fL (80-100); MPV 10.4 fL (7.6-11.3); RBC Red Blood Cell Count 4.73 M/uL (4.33-5.43)
[2022-09-02 01:13] LABS: Albumin 3.8 g/dL (3.4-5.0); Bilirubin Direct 0.3 mg/dL (0-0.2); Bilirubin Total 0.8 mg/dL (0.2-1.0); Magnesium 1.5 mg/dL (1.6-2.4); Potassium 3.9 mmol/L (3.5-5.1)
[2022-09-02] MEDS ORDERED: DIPHENHYDRAMINE 50 MG/ML VIAL ONE (01:24)
[2022-09-02] MEDS ORDERED: METHYLPREDNISOLONE 125 MG INJ ONE (01:24)
--- NOTE | 2022-09-02 03:10 | EDPHYS ---
Physician Documentation [facility] Name: Antonio Manning Age: 57 yrs Sex: Male : 1965 Arrival Date: 09/01/2022 Time: 23:33 Bed 13 Private MD: ED Physician Wing Montoya HPI: 09/02 01:07 This 57 yrs old Male presents to ER via Ambulatory with complaints of Shortness Of ms3 Breath. 01:07 . ms3 01:07 57-year-old male with past medical history of diabetes, heart failure presents with ms3 shortness of breath when laying down. Patient states this is been ongoing for 2 months and causes panic attacks. Patient denies fevers, chills, cough, nausea, vomiting, chest pain.. Historical: - Allergies: 09/01 23:46 Iodine; aa9 23:46 BILLY INHIBITORS; aa9 - Home Meds: 23:46 Metformin Oral [Active]; aa9 - PMHx: 23:46 Diabetes - NIDDM; Congestive heart failure; aa9 - PSHx: 23:46 None; aa9 - Immunization history:: Client reports having NOT received the Covid vaccine. - Social history:: Smoking status: Patient reports the use of cigarette tobacco products, smokes one pack cigarettes per day. ROS: 09/02 01:07 Constitutional: Negative for fever, and chills. Neck: Negative for injury, pain, and ms3 swelling, Cardiovascular: Negative for chest pain, and palpitations. Abdomen/GI: Negative for abdominal pain, nausea, vomiting, diarrhea, and constipation, MS/Extremity: Negative for injury and deformity, Skin: Negative for injury, rash, and discoloration. Respiratory: Positive for shortness of breath. All other systems are negative. Exam: 01:07 Constitutional: This is a well developed, well nourished patient who is awake, alert, ms3 and in no acute distress. Neck: Trachea midline, no cervical lymphadenopathy. Supple, full range of motion without nuchal rigidity, or vertebral point tenderness. No Meningismus. Chest/axilla: Normal chest wall appearance and motion. Nontender with no deformity. Cardiovascular: Regular rate and rhythm with a normal S1 and S2. No gallops, murmurs, or rubs. Normal PMI, no JVD. No pulse deficits. Respiratory: Lungs have equal breath sounds bilaterally, clear to auscultation and percussion. No rales, rhonchi or wheezes noted. No increased work of breathing, no retractions or nasal flaring. Abdomen/GI: Soft, non-tender, with normal bowel sounds. No distension or tympany. No guarding or rebound. No evidence of tenderness throughout. Skin: Warm, dry with normal turgor. Normal color with no rashes, no lesions, and no evidence of cellulitis. MS/ Extremity: Pulses equal, no cyanosis. Neurovascular intact. Full, normal range of motion. 01:07 ECG was reviewed by the Attending Physician. ms3 Vital Signs: 09/01 23:44 BP 148 / 93; Pulse 104; Resp 20 S; Temp 97.7(O); Pulse Ox 100% on R/A; Weight 108.86 kg aa9 (R); Height 5 ft. 11 in. (180.34 cm) (R); Pain 8/10; 09/02 03:00 Pulse Ox 88% on R/A; ke1 03:02 Pulse Ox 94% 2 lpm ; ke1 03:10 BP 125 / 89; Pulse 97; Resp 22; Pulse Ox 97% on 2 lpm NC; ke1 09/01 23:44 Body Mass Index 33.47 (108.86 kg, 180.34 cm) aa9 MDM: 09/01 23:43 Patient medically screened. ms3 09/02 00:00 Independent interpretation of the following test(s) in the Emergency Department X-Ray: ms3 My interpretation is CXR image reviewed by me: Dextrocardia, negative acute. 01:07 ED course: Discussed iodine allergy with patient. Patient states he has not received ms3 contrast before, but is allergic to seafood.. 01:07 Differential diagnosis: CHF exacerbation, Chronic Obstructive Pulmonary Disease ms3 Myocardial Infarction pneumonia. 03:07 Data reviewed: vital signs, nurses notes, lab test result(s), EKG, radiologic studies, ms3 CT scan, plain films, and as a result, I will discharge patient. Consideration of Admission/Observation Patient was admitted/placed on observation. Care significantly affected by the following Social Determinants of Health:. Counseling: I had a detailed discussion with the patient and/or guardian regarding: the historical points, exam findings, and any diagnostic results supporting the discharge/admit diagnosis, lab results, radiology results, the need for further work-up and treatment in the hospital, smoking cessation. ED course: Discussed labs with patient. CT showing bilateral pleural effusions with vascular congestion. On reevaluation patient oxygen saturation 89%. Patient placed on 2 L nasal cannula oxygen. Discussed case with JEFFREY Roberts, and she accepts patient on behalf of of Dr. Vital.. 09/01 23:43 Order name: Basic Metabolic Panel; Complete Time: 01:19 ms3 09/01 23:43 Order name: CBC with Diff; Complete Time: :19 ms3 09/01 23:43 Order name: D-Dimer; Complete Time: :19 ms3 09/01 23:43 Order name: LFT's; Complete Time: :19 ms3 09/01 23:43 Order name: Magnesium; Complete Time: :19 ms3 09/01 23:43 Order name: NT PRO-BNP; Complete Time: :19 ms3 09/01 23:43 Order name: Troponin HS; Complete Time: :19 ms3 09/01 23:43 Order name: XRAY Chest (1 view) 09/01 23:43 Order name: EKG; Complete Time: 23:44 ms3 09/02 01:07 Order name: CT Chest For PE Angio 09/02 03:10 Order name: SARS RAPID; Complete Time: 03:45 ms3 09/01 23:43 Order name: Cardiac monitoring; Complete Time: 01:29 ms3 09/01 23:43 Order name: EKG - Nurse/Tech; Complete Time: 23:59 ms3 09/01 23:43 Order name: IV Saline Lock; Complete Time: 01:18 ms3 09/01 23:43 Order name: Labs collected and sent; Complete Time: 00:43 ms3 09/01 23:43 Order name: O2 Per Protocol; Complete Time: 03:50 ms3 09/01 23:43 Order name: O2 Sat Monitoring; Complete Time: 03:50 ms3 EC:07 Rate is 98 beats/min. Rhythm is regular. MD interval is normal. QRS interval is normal. ms3 Clinical impression: NSR w/ Non-specific ST/T Changes. Interpreted by me. Reviewed by me. Administered Medications: : Drug: SOLU-Medrol (methylPrednisoLONE) 125 mg Route: IVP; Site: left upper arm; ke1 01:26 Drug: Benadryl (diphenhydrAMINE) 25 mg Route: IVP; Site: left upper arm; ke1 03:22 Drug: Lasix (furosemide) 40 mg Route: IVP; Site: left upper arm; ke1 Disposition Summary: 09/02/22 03:10 Hospitalization Ordered Hospitalization Status: Inpatient Admission ms3 Provider: Everardo Vital ms3 Location: Telemetry/MedSurg (Inpatient) ms3 Condition: Stable ms3 Problem: new ms3 Symptoms: are unchanged ms3 Bed/Room Type: Standard ms3 Room Assignment: 431(09/02/22 03:43) mw Diagnosis - Heart failure, unspecified ms3 - Shortness of breath ms3 - Essential (primary) hypertension ms3 - Tobacco abuse counseling ms3 - Pleural effusion in other conditions classified elsewhere ms3 Forms: - Medication Reconciliation Form ms3 - SBAR form ms3 Signatures: Dispatcher [employer] EDMS Trisha Marlow RN RN mw Wing Montoya DO DO ms3 Carrie Mcintyre RN RN ke1 Brandee Knox RN RN aa9 Corrections: (The following items were deleted from the chart) 01:15 01:07 This 57 yrs old Male presents to ER via Ambulatory with complaints of Shortness ms3 Of Breath. ms3 03:43 03:10 ms3 mw
--- NOTE | 2022-09-02 03:10 | ER ---
Nurse's Notes [facility] Name: Antonio Manning Age: 57 yrs Sex: Male : 1965 Arrival Date: 09/01/2022 Time: 23:33 Bed 13 Private MD: Diagnosis: Heart failure, unspecified;Shortness of breath;Essential (primary) hypertension;Tobacco abuse counseling;Pleural effusion in other conditions classified elsewhere Presentation: 09/01 23:44 Chief complaint: Patient states: When I lay down I feel like I don't get enough oxygen, aa9 I can breathe fine its just like I get really anxious. It wakes me up in the morning. I also have back pain for the last couple months . Coronavirus screen: Vaccine status: Patient reports being unvaccinated. Ebola Screen: No symptoms or risks identified at this time. Initial Sepsis Screen: Does the patient meet any 2 criteria? No. Patient's initial sepsis screen is negative. Does the patient have a suspected source of infection? No. Patient's initial sepsis screen is negative. Risk Assessment: Do you want to hurt yourself or someone else? Patient reports no desire to harm self or others. Onset of symptoms was September 01, 2022. 23:44 Method Of Arrival: Ambulatory aa9 23:44 Acuity: SALLIE 3 aa9 Triage Assessment: 23:46 General: Appears uncomfortable, obese, unkempt, Behavior is cooperative, anxious. Pain: aa9 Complains of pain in low back area Pain currently is 8 out of 10 on a pain scale. Pain began months now. Neuro: Level of Consciousness is awake, alert, obeys commands, Oriented to person, place, time, situation. Cardiovascular: Patient's skin is warm and dry. Respiratory: Reports shortness of breath at rest Onset: The symptoms/episode began/occurred months ago, the patient has mild shortness of breath. GI: No signs and/or symptoms were reported involving the gastrointestinal system. : No signs and/or symptoms were reported regarding the genitourinary system. Historical: - Allergies: 23:46 Iodine; aa9 23:46 BILLY INHIBITORS; aa9 - Home Meds: 23:46 Metformin Oral [Active]; aa9 - PMHx: 23:46 Diabetes - NIDDM; Congestive heart failure; aa9 - PSHx: 23:46 None; aa9 - Immunization history:: Client reports having NOT received the Covid vaccine. - Social history:: Smoking status: Patient reports the use of cigarette tobacco products, smokes one pack cigarettes per day. Screenin:51 Abuse screen: Denies threats or abuse. Denies injuries from another. Nutritional aa9 screening: No deficits noted. Tuberculosis screening: No symptoms or risk factors identified. 09/02 01:27 [facility] ED Fall Risk Assessment (Adult) History of falling in the last 3 months, ke1 including since admission No falls in past 3 months (0 pts) Confusion or Disorientation No (0 pts) Intoxicated or Sedated No (0 pts) Impaired Gait No (0 pts) Mobility Assist Device Used No (0 pt) Altered Elimination No (0 pt) Score/Fall Risk Level 0 - 2 = Low Risk. Assessment: 01:02 Reassessment: Patient has a lot of scar tissues making it difficult to get an IV. ke1 01:26 Cardiovascular:. Respiratory: Airway is patent Respiratory effort is even, unlabored, ke1 Respiratory pattern is regular, symmetrical, Breath sounds are clear bilaterally. 02:46 Reassessment: Patient and/or family updated on plan of care and expected duration. Pain ke1 level reassessed. Patient is alert, oriented x 3, equal unlabored respirations, skin warm/dry/pink. Patient denies pain at this time. Patient states feeling better. Patient states symptoms have improved. 04:38 Cardiovascular: Rhythm is sinus rhythm. ke1 Vital Signs: 09/01 23:44 BP 148 / 93; Pulse 104; Resp 20 S; Temp 97.7(O); Pulse Ox 100% on R/A; Weight 108.86 kg aa9 (R); Height 5 ft. 11 in. (180.34 cm) (R); Pain 8/10; 09/02 03:00 Pulse Ox 88% on R/A; ke1 03:02 Pulse Ox 94% 2 lpm ; ke1 03:10 BP 125 / 89; Pulse 97; Resp 22; Pulse Ox 97% on 2 lpm NC; ke1 09/01 23:44 Body Mass Index 33.47 (108.86 kg, 180.34 cm) aa9 ED Course: 09/01 23:33 Patient arrived in ED. ja2 23:35 Wing Montoya DO is Attending Physician. ms3 23:36 Carrie Mcintyre, RN is Primary Nurse. ke1 23:45 Missed attempt(s): 22 gauge in right forearm. ke1 23:46 Triage completed. aa9 23:50 Missed attempt(s): 22 gauge in right forearm. ke1 23:51 Arm band placed on. aa9 23:59 EKG done, by ED staff, reviewed by Wing Montoya DO. ls5 09/02 01:18 Inserted saline lock: 22 gauge in left upper arm, using aseptic technique. ,using ke1 aseptic technique. by Daria Charge Nurse. 01:27 Bed in low position. Call light in reach. ke1 02:04 XRAY Chest (1 view) In Process Unspecified. EDMS 02:05 CT Chest For PE Angio In Process Unspecified. EDMS 03:09 Everardo Vital is Hospitalizing Provider. ms3 03:22 SARS RAPID Sent. ke1 04:38 No provider procedures requiring assistance completed. Patient admitted, IV remains in ke1 place. Administered Medications: 01:25 Drug: SOLU-Medrol (methylPrednisoLONE) 125 mg Route: IVP; Site: left upper arm; ke1 01:26 Drug: Benadryl (diphenhydrAMINE) 25 mg Route: IVP; Site: left upper arm; ke1 03:22 Drug: Lasix (furosemide) 40 mg Route: IVP; Site: left upper arm; ke1 Medication: 09/01 23:51 VIS not applicable for this client. aa9 Output: 09/02 03:47 Urine: 500ml (Voided); Total: 500ml. ke1 Outcome: 03:10 Decision to Hospitalize by Provider. ms3 04:38 Admitted to Med/surg accompanied by tech. ke1 04:38 Condition: stable 04:38 Instructed on the need for admit. 04:39 Patient left the ED. ke1 Signatures: Dispatcher [employer] EDMS Wing Montoya DO DO ms3 Eneida Iglesias ja2 Carrie Mcintyre, RN RN ke1 Brandee Knox, CHETNA RN aa9 Addi Hoyos ls5
[2022-09-02] MEDS ORDERED: FUROSEMIDE 40 MG/4 ML VIAL ONE (03:18)
--- NOTE | 2022-09-02 03:18 | P.HP ---
Certification for Inpatient Patient admitted to: Inpatient With expected LOS: <2 Midnights Patient will require the following post-hospital care: None Practitioner: I am a practitioner with admitting privileges, knowledge of patient current condition, hospital course, and medical plan of care. Services: Services provided to patient in accordance with Admission requirements found in Title 42 Section 412.3 of the Code of Federal Regulations Patient History Date of Service: 09/02/22 Reason for admission: CHF Exacerbation History of Present Illness: Patient is a 57 year old male with past medical history of CHF, situs inversus, and non-insulin dependent type 2 diabetes who presented to the emergency department with complaints of shortness of breath. He reports it has gotten progressively worse over the past 3 months and is especially worse when he lies flat. His labs are significant for glucose 195, BUN 19, Cr 1.38, ddimer 1286, magnesium 1.5, BNP 5048. Chest xray was negative. Chest CTA showed " mild pulmonary congestion including bilateral pleural effusions." it was noted that patient's O2 saturation dropped down to 88% while resting. Patient states that he was diagnosed with CHF in the past but has not taken any medication or followed up with anyone about it. He was given 40 mg IV lasix in the emergency department. Patient is admitted for further management. Allergies iodine Allergy (Verified 08/02/21 22:48) Itching/Hives/Rash Home medications list reviewed: Yes Home Medications: Insulin Glargine,Hum.rec.anlog [Lantus] 20 unit SQ BEDTIME #2 vial 08/07/21 Metoprolol Tartrate [Lopressor] 50 mg PO BID #60 tab 08/07/21 Mometasone/Formoterol [Dulera 200 Mcg/5 Mcg Inhaler] 2 puff IH BID #1 inhaler 08/07/21 Nicotine [Nicoderm*] 21 mg TD DAILY #30 patch.td24 08/07/21 chlordiazePOXIDE HCl [Chlordiazepoxide HCl] 10 mg PO BID PRN #30 capsule 2 levoFLOXacin [Levaquin] 500 mg PO DAILY #5 tab 08/07/21 predniSONE [Deltasone] 20 mg PO BID #11 tab 08/07/21 Metformin HCl 1,000 mg PO BID #60 08/18/21 Metformin HCl [Glucophage*] 1,000 mg PO BIDWM #120 tab 08/18/21 - Past Medical/Surgical History Diabetic: Yes -: situs inversus totalis -: T2DM -: CHF -: Tobacco Abuse Past Surgical History: Patient denies surgical history Psychosocial/ Personal History: Patient lives at home with his partner. - Family History Mother -: Cancer Father -: Other (see notes) Notes: suicide - Social History Smoking Status: Current every day smoker Alcohol use: Yes CD- Drugs: No Caffeine use: Yes Place of Residence: Home Review of Systems Respiratory: Other (Orthopnea) Physical Examination - Vital Signs Temperature: 97.7 F Blood Pressure: 125/89 Pulse: 97 Respirations: 22 Pulse Ox (%): 97 (2L NC) - Physical Exam General: Alert, In no apparent distress HEENT: Atraumatic, PERRLA, EOMI, Sclerae nonicteric Neck: Supple, 2+ carotid pulse no bruit, No LAD, Without JVD or thyroid abnormality Respiratory: Clear to auscultation bilaterally, Normal air movement Cardiovascular: No edema, Regular rate/rhythm, Normal S1 S2 Gastrointestinal: Normal bowel sounds, No tenderness Musculoskeletal: No tenderness Integumentary: No rashes Neurological: Normal speech, Normal strength at 5/5 x4 extr, Normal tone, Normal affect - Studies Laboratory Data (last 24 hrs) 09/02/22 00:42: WBC 8.10, Hgb 14.2, Hct 42.2, Plt Count 118 L 09/02/22 00:42: Sodium 138, Potassium 3.9, BUN 19 H, Creatinine 1.38 H, Glucose 195 H, Magnesium 1.5 L, Total Bilirubin 0.8, AST 18, ALT 24, Alkaline Phosphatase 61 Assessment and Plan - Problems (Diagnosis) (1) Congestive heart failure (CHF) Current Visit: Yes Status: Acute Qualifiers: Heart failure type: diastolic Heart failure chronicity: acute on chronic Qualified Code(s): I50.33 - Acute on chronic diastolic (congestive) heart failure (2) Situs inversus Current Visit: Yes Status: Chronic (3) T2DM (type 2 diabetes mellitus) Current Visit: Yes Status: Chronic Qualifiers: 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 Will obtain echo and cardiology consult. Patient is not on any medications for CHF. Echo from 1 year ago showed an EF of 30-35%. Received 40 mg IV lasix in the emergency department. Will hold off on additional for now. ACHS accu checks with mild sliding scale and diabetic diet. Lipid panel, TSH, and A1c ordered. Tobacco cessation counseling. Nicoderm patch provided. Monitor and replete electrolytes per protocol. Reconcile and continue home medications. Lovenox for VTE prophylaxis. Full code. Discharge Plan: Home Plan to discharge in: 48 Hours - Advance Directives Does patient have a Living Will: No Does patient have a Durable POA for Healthcare: No - Code Status/Comfort Care Code Status Assessed: Yes Code Status: Full Code Physician Review: Patient Assessed, Agree with Above Assessment and Plan Critical Care: No Time Spent Managing Pts Care (In Minutes): 50
[2022-09-02 03:36] LABS: SARS-CoV-2 Antigen Rapid Res Negative (Negative)
[2022-09-02] MEDS ORDERED: ONDANSETRON 4 MG/2 ML VIAL IV PRN (04:45)
[2022-09-02] MEDS ORDERED: ALBUTEROL 2.5 MG/3 ML NEB SOL NEB PRN (04:45)
[2022-09-02] MEDS ORDERED: ACETAMINOPHEN 500 MG TAB PO PRN (04:45)
[2022-09-02 05:11] VITALS: BMI 33.5
[2022-09-02] MEDS ORDERED: NA CHLORIDE 0.9% 250 ML ONE (06:51)
[2022-09-02] MEDS ORDERED: Magnesium Sulfate 2gm IVPB 2 G/50 ML BAG IV ONE (07:00)
[2022-09-02 08:11] VITALS: BP 137/83; TEMP 97.4
[2022-09-02] MEDS: INSULIN -REGULAR HUMAN 50 UNIT/0.5 ML ML SQ SCH ×2 (08:40→11:30)
[2022-09-02] MEDS ORDERED: ENOXAPARIN 40 MG/0.4 ML SQ SCH (09:00)
[2022-09-02] MEDS ORDERED: POTASSIUM CL SA 10 MEQ TAB PO ONE (09:00)
[2022-09-02] MEDS ORDERED: ASPIRIN EC 81 MG TAB PO SCH (09:00)
[2022-09-02] MEDS ORDERED: NICOTINE 21 MG/PAT TD SCH (09:00)
[2022-09-02 09:04] VITALS: O2SAT 93
--- NOTE | 2022-09-02 11:15 | P.DS ---
Admission Date: 09/02/22 Discharge Date: 09/02/22 Disposition: ROUTINE DISCHARGE Discharge Condition: FAIR Reason for Admission: CHF Exacerbation - Problems (1) Acute on chronic systolic heart failure Status: Acute (2) T2DM (type 2 diabetes mellitus) Status: Chronic Qualifiers: Diabetes mellitus snf insulin use: without extermination inspector use Diabetes mellitus complication status: with hyperglycemia Qualified Code(s): E11.65 - Type 2 diabetes mellitus with hyperglycemia (3) Tobacco use Status: Chronic Brief History of Present Illness: Patient is a 57 year old male with past medical history of CHF, situs inversus, and non-insulin dependent type 2 diabetes who presented to the emergency department with complaints of shortness of breath which has gotten progressively worse over the past 3 months and is especially worse when he lies flat. His labs are significant for glucose 195, BUN 19, Cr 1.38, ddimer 1286, magnesium 1.5, BNP 5048. Chest xray was negative. Chest CTA showed " mild pulmonary congestion including bilateral pleural effusions." it was noted that patient's O2 saturation dropped down to 88% while resting. Patient states that he was diagnosed with CHF in the past but has not taken any medication or followed up with anyone about it. He was given 40 mg IV lasix in the emergency department and admitted for further management. Hospital Course: Patient admitted to the medical floor and treated with IV Lasix. He has a history of systolic heart failure with EF of 30 to 35%. He stated his shortness of resolved. Patient apparently went for a walk for fresh air without shortness of breath. Seen and examined today and he denies any shortness of breath. Oxygen saturation has been stable above 90% on room air. Vitals are stable. Patient is discharged with heart failure medications. He is a non-smoker and suspect COPD contributing to his shortness of breath. Patient prescribed Lasix maintenance dose, Advair for possible COPD. He is informed to follow-up with cardiology as an outpatient and also with his PCP. Vital Signs/Physical Exam: Temp Pulse Resp BP Pulse Ox 97.4 F 93 H 18 137/83 93 09/02/22 08:00 09/02/22 08:00 09/02/22 08:00 09/02/22 08:00 09/02/22 08:00 General: Alert, In no apparent distress, Oriented x3 HEENT: Mucous membr. moist/pink Neck: JVD not distended Respiratory: Clear to auscultation bilaterally, Normal air movement Cardiovascular: No edema, Regular rate/rhythm, Normal S1 S2 Gastrointestinal: Soft and benign, Non-distended, No ascites Musculoskeletal: No swelling Integumentary: No rashes, No cyanosis Neurological: Normal strength at 5/5 x4 extr Laboratory Data at Discharge: WBC 8.10 K/uL (4.3-10.9) 09/02/22 00:42 Hgb 14.2 g/dL (13.6-17.9) 09/02/22 00:42 Hct 42.2 % (39.6-49.0) 09/02/22 00:42 Plt Count 118 K/uL (152-406) L 09/02/22 00:42 Sodium 138 mmol/L (136-145) 09/02/22 00:42 Potassium 3.9 mmol/L (3.5-5.1) 09/02/22 00:42 BUN 19 mg/dL (7-18) H 09/02/22 00:42 Creatinine 1.38 mg/dL (0.70-1.30) H 09/02/22 00:42 Glucose 195 mg/dL (74-106) H 09/02/22 00:42 Magnesium 1.5 mg/dL (1.6-2.4) L 09/02/22 00:42 Total Bilirubin 0.8 mg/dL (0.2-1.0) 09/02/22 00:42 AST 18 U/L (15-37) 09/02/22 00:42 ALT 24 U/L (16-61) 09/02/22 00:42 Alkaline Phosphatase 61 U/L (45-117) 09/02/22 00:42 Home Medications: Aspirin [Aspirin EC] 81 mg PO DAILY #30 tab 09/02/22 Atorvastatin Calcium [Lipitor] 40 mg PO BEDTIME #30 tab 09/02/22 Fluticasone/Salmeterol [Advair 250-50 Diskus] 1 each IH BID #1 kit 09/02/22 Furosemide [Lasix] 40 mg PO DAILY #30 tab 09/02/22 Metformin HCl [Glucophage*] 1,000 mg PO BIDWM #120 tab 09/02/22 carvediloL [Coreg] 3.125 mg PO BID #60 tab 09/02/22 lisinopriL [Lisinopril] 5 mg PO DAILY #30 tab 09/02/22 New Medications: Fluticasone/Salmeterol [Advair 250-50 Diskus] 1 each IH BID #1 kit Aspirin [Aspirin EC] 81 mg PO DAILY #30 tab carvediloL [Coreg] 3.125 mg PO BID #60 tab Metformin HCl [Glucophage*] 1,000 mg PO BIDWM #120 tab Furosemide [Lasix] 40 mg PO DAILY #30 tab Atorvastatin Calcium [Lipitor] 40 mg PO BEDTIME #30 tab lisinopriL [Lisinopril] 5 mg PO DAILY #30 tab Diet: ADA Activity: Ad verna Followup: Rusty Campos MD [ACTIVE - CAN ADMIT] - 1-2 Weeks (call to schedule an appointment) Radha Law MD [Primary Care Provider] - 1 Week (call to schedule an appointment) Time spent managing pt's care (in minutes): 33
[2022-09-02] MEDS ORDERED: INFLUENZA VACCINE (for 6+ mo) 0.5 ML DOSE IMVAC ONE (12:00)
[2022-09-02] MEDS ORDERED: ATORVASTATIN 40 MG TAB PO SCH (21:00)
--- NOTE | 2022-09-03 20:08 | RAD REPORT ---
EXAM DESCRIPTION: RAD - Chest Single View - 09/02/2022 12:29 am CLINICAL HISTORY: 57-year-old male with shortness of breath. TECHNIQUE: Single view, AP portable chest was obtained. COMPARISON: 08/07/2021. FINDINGS: Dextrocardia otherwise stable cardiac and mediastinal silhouette. Heart size is normal. Low lung volumes otherwise grossly clear without focal opacity, pneumothorax or pleural effusions. The visualized bones are within normal limits. IMPRESSION: No acute cardiopulmonary abnormalities. Electronically signed by: Jeni Garcia MD 09/02/2022 12:41 AM BUSINESS SYSTEMS ARCHITECT Due to temporary technical issues with the PACS/Fluency reporting system, reports are being signed by the in house radiologists without review as a courtesy to insure prompt reporting. The interpreting radiologist is fully responsible for the content of the report.
--- NOTE | 2022-09-03 20:23 | RAD REPORT ---
EXAM DESCRIPTION: CT - Chest For Pe Angio - 09/03/2022 7:21 am CLINICAL HISTORY: Shortness of breath, pos d dimer TECHNIQUE: Axial computed tomographic angiography images of the chest with intravenous contrast. S agittal and coronal reformatted images were created and reviewed. This CT exam was performed using one or more of the following dose reduction techniques: automated exposure control, adjustment of t he mA and/or kV according to patient size, and/or use of iterative reconstruction technique. MIP reconstructed images were created and reviewed. COMPARISON: Chest CT dated 08/02/2021 FINDINGS: Artifacts: Motion artifact degrades image quality and limits evaluation of segmental and subsegmental vessels. Pulmonary arteries: No central pulmonary arterial filling defects. Aorta: Situs inversus totalis with dextrocardia and right-sided aortic arch. No thoracic aortic a neurysm. Lungs: Mild interstitial thickening with a lower lobe predominance. Minimal bibasilar consolidati on. Pleural space: Small to moderate left and small right pleural effusions. No pneumothorax. Heart: See above. No significant pericardial effusion. No evidence of RV dysfunction. Mediastinum: Prominent mediastinal and hilar lymph nodes measuring up to 17 mm in short axis. Bones/joints: No acute fracture. No dislocation. Soft tissues: Unremarkable. Lymph nodes: Unremarkable. No enlarged lymph nodes. Liver: The liver is enlarged. IMPRESSION: 1. Motion artifact degrades image quality and limits evaluation of segmental and subse gmental vessels. No central pulmonary embolic disease. 2. Findings which may be related to mild pulmonary congestion including bilateral pleural effusions . Superimposed infection not excluded. 3. Other findings as above. Electronically signed by: Kacey Wesley MD 09/02/2022 2:43 AM [facility] Due to temporary technical issues with the PACS/Fluency reporting system, reports are being signed by the in house radiologists without review as a courtesy to insure prompt reporting. The interpreting radiologist is fully responsible for the content of the report.
--- NOTE | 2022-09-05 17:08 | EKG ---
Test Date: 2022-09-01 Test Time: 23:56:53 Crankshaft Straightener: MEASUREMENT RESULTS: Intervals: Rate: 98 [place]: 150 QRSD: 94 QT: 362 QTc: 462 [place]: P: 119 NH: 150 QRS: 234 T: 94 INTERPRETIVE STATEMENTS: Suspect arm lead reversal, interpretation assumes no reversal Normal sinus rhythm Possible Anterolateral infarct, age undetermined Abnormal ECG Compared to ECG 08/02/2021 02:16:20 Sinus tachycardia no longer present Myocardial infarct finding still present Electronically Signed On 09-05-22 16:59:44 AMMUNITION STORAGE SUPERINTENDENT by Skinny Vigil
== END 2022-09-02 11:41 | disposition home or self-care (01) | DRG 291 ==
LOC: ER 23:27 → ERHOLD 09-02 03:12 → 4TH 09-02 03:48
PROVIDERS: ADMIT Internal Medicine; ATTEND Internal Medicine
DX: I13.0 Hypertensive heart and chronic kidney disease with heart failure and stage 1 through stage 4 chronic kidney disease, or unspecified chronic kidney disease (principal); I50.23 Acute on chronic systolic (congestive) heart failure; Q89.3 Situs inversus; N18.2 Chronic kidney disease, stage 2 (mild); E11.22 Type 2 diabetes mellitus with diabetic chronic kidney disease; E11.65 Type 2 diabetes mellitus with hyperglycemia; F17.210 Nicotine dependence, cigarettes, uncomplicated; Z71.6 Tobacco abuse counseling; Z79.52 Long term (current) use of systemic steroids; Z79.899 Other long term (current) drug therapy; Z91.041 Radiographic dye allergy status; Z88.8 Allergy status to other drugs, medicaments and biological substances; Z28.310 Unvaccinated for COVID-19; Z20.822 Contact with and (suspected) exposure to COVID-19; Z80.9 Family history of malignant neoplasm, unspecified
CPT/HCPCS: 36415; 71045; 71275; 80048; 80076; 82947; 83735; 83880; 84484; 85025; 85379; 87811; 93005; 94760; 96374; 96375; 99285; J1200; J1650; J1815; J1940; J2930; J3475; J7050; Q9967

== ENCOUNTER 2022-10-27 10:30 | Emergency (ER) | payer SELFPAY ==
--- OUTSIDE RECORDS SUMMARY | 2022-10-27 10:33 | XMS REPORT | Continuity of Care Document ---
:1965 Author Organization [facility] t Address [address] [place] [id number] Care Team Providers Name Role Phone MALIKA Attending Clinician Unavailable MALIKA Admitting Clinician Unavailable Payers Payer Name Policy Type Policy Number Effective Date Expiration Date Yonis cunningham [facility]: YURIY [id number] 2022 ADVANTAGE ([facility]) 00:00:00 Problems This patient has no known problems. Allergies, Adverse Reactions, Alerts This patient has no known allergies or adverse reactions. Medications This patient has no known medications. Procedures This patient has no known procedures. Encounters Start End Encounter Admission Attending Care Care Encounter Source Date/Time Date/Time Type Type Clinicians Facility Department ID 2022-07-26 2022-07-26 Outpatient NACHO_RISHI NDMARYLU [facility] [id number] [place] 00:00:00 00:00:00 _[id number] [facility] 2022-05-04 2022-05-04 Outpatient SHIMHERNANDO_RISHI [facility] [id number] [place] 00:00:00 00:00:00 _ANN [id number] [facility] 2022-04-19 2022-04-19 Outpatient SHIMHERNANDO_RISHI [facility] [id number] [place] 00:00:00 00:00:00 _ANN [id number] [facility] Results This patient has no known results.
[2022-10-27 11:25] LABS: Absolute Lymphocytes (CBC) 1.2 K/uL (0.7-4.9); Hematocrit 40.5 % (39.6-49.0); Lymphocytes % 17.7 % (15.3-44.8); MCV 87.1 fL (80-100); MPV 10.1 fL (7.6-11.3); RBC Red Blood Cell Count 4.65 M/uL (4.33-5.43)
[2022-10-27] MEDS ORDERED: LEVALBUTEROL 1.25 MG/3 ML NEB ONE (11:26)
[2022-10-27 11:27] LABS: Protime INR 1.23
[2022-10-27] MEDS ORDERED: FUROSEMIDE 40 MG/4 ML VIAL ONE (11:27)
[2022-10-27 11:44] LABS: Albumin 3.5 g/dL (3.4-5.0); Bilirubin Direct 0.4 mg/dL (0-0.2); Bilirubin Total 1.1 mg/dL (0.2-1.0); Magnesium 1.5 mg/dL (1.6-2.4); Potassium 3.5 mEq/L (3.5-5.1); Protein, Total 6.8 g/dL (6.4-8.2); Troponin High Sensitivity 26.4 pg/mL (<58.9)
--- NOTE | 2022-10-27 12:06 | RAD REPORT ---
EXAM DESCRIPTION: RAD - Chest Single View - 10/27/2022 11:43 am CLINICAL HISTORY: SOB Chest pain. COMPARISON: Chest Single View dated 09/02/2022; Chest Single View dated 08/07/2021; Chest Single View d ated 08/06/2021; Chest Single View dated 08/04/2021; Chest For Pe Angio dated 09/02/2022 FINDINGS: Portable technique limits examination quality. Mild pulmonary edema. The heart is moderately enlarged. No displaced fractures.Dextrocardia. IMPRESSION: Mild CHF.
[2022-10-27 12:12] LABS: SARS-COV-2 RT PCR NEGATIVE (NEGATIVE)
--- NOTE | 2022-10-27 14:02 | EDPHYS ---
Physician Documentation [facility] Name: Antonio Manning Age: 57 yrs Sex: Male : 1965 Arrival Date: 10/27/2022 Time: 10:32 Bed 2 Private MD: ED Physician Phuc Rocha HPI: 10/27 10:50 This 57 yrs old Male presents to ER via Ambulatory with complaints of Breathing jmm Difficulty. 10:50 The patient has shortness of breath at rest. Onset: The symptoms/episode began/occurred jmm gradually. Duration: The symptoms. The patient's shortness of breath is aggravated by nothing, is alleviated by nothing. This is a 57 year old male with a history of CHF, COPD, DM, HLP that presents to the ED with complaints of shortness of breath worsening over the past 4 to 5 days. Patient states running out of his prescribed medications from his most recent admission for a similar episode. . Historical: - Allergies: 10:39 BILLY INHIBITORS; jl7 10:39 Iodine; jl7 10:39 shrimp; jl7 - Home Meds: 10:39 Metformin Oral [Active]; Lasix Oral [Active]; jl7 - PMHx: 10:39 Congestive heart failure; Diabetes - NIDDM; Hypercholesterolemia; jl7 - Immunization history:: Client reports having NOT received the Covid vaccine. - Social history:: Smoking status: Patient reports the use of cigarette tobacco products, smokes one pack cigarettes per day. ROS: 10:50 Constitutional: Negative for fever, chills, and weight loss, Cardiovascular: Negative jmm for chest pain, palpitations, and edema. 10:50 Respiratory: Positive for shortness of breath. 10:50 All other systems are negative. Exam: 10:50 Constitutional: This is a well developed, well nourished patient who is awake, alert, jmm and in no acute distress. Head/Face: atraumatic. Eyes: EOMI, no conjunctival erythema appreciated ENT: Moist Mucus Membranes Neck: Trachea midline, Supple Chest/axilla: Normal chest wall appearance and motion. Cardiovascular: Regular rate and rhythm. No edema appreciated Respiratory: Normal respirations, no respiratory distress appreciated Abdomen/GI: Non distended Back: Normal ROM Skin: General appearance color normal MS/ Extremity: Moves all extremities, no obvious deformities appreciated, no edema noted to the lower extremities Neuro: Awake and alert Psych: Behavior is normal, Mood is normal, Patient is cooperative and pleasant Vital Signs: 10:37 BP 141 / 110; Pulse 101; Resp 23; Temp 98.1; Pulse Ox 100% ; Weight 117.93 kg; Height 5 jl7 ft. 11 in. ; Pain 10/10; 11:30 BP 158 / 84; Pulse 93; Resp 25; Pulse Ox 100% on R/A; eh3 12:30 BP 142 / 65; Pulse 97; Resp 24; Pulse Ox 99% on R/A; eh3 13:30 BP 146 / 92; Pulse 97; Resp 23; Pulse Ox 100% on R/A; eh3 14:30 BP 168 / 86; Pulse 99; Resp 20; Pulse Ox 100% on R/A; eh3 10:37 Body Mass Index 36.26 (117.93 kg, 180.34 cm) 7 10:37 Pain Scale: Adult 7 MDM: 10:50 Patient medically screened. [facility] 13:40 Data reviewed: vital signs, nurses notes. [facility] 16:15 Differential diagnosis: CHF exacerbation, Chronic Obstructive Pulmonary Disease. I jmm considered the following discharge prescriptions or medication management in the emergency department Medications were administered in the Emergency Department. See MAR. Counseling: I had a detailed discussion with the patient and/or guardian regarding: the historical points, exam findings, and any diagnostic results supporting the discharge/admit diagnosis, lab results, radiology results, the need for outpatient follow up, to return to the emergency department if symptoms worsen or persist or if there are any questions or concerns that arise at home. ED course: Patient is alert and non toxic in appearance in the ED. No signs of resp distress. VS normal. patient advised to follow up with PCP and otherwise given strict return precautions. Patient understood and agrees with the plan of care. . 10/27 10:52 Order name: Basic Metabolic Panel; Complete Time: 12:13 [facility] 10/27 10:52 Order name: CBC with Diff; Complete Time: 12: [facility] 10/27 10:52 Order name: LFT's; Complete Time: 12:13 [facility] 10/27 10:52 Order name: Magnesium; Complete Time: 12:13 [facility] 10/27 10:52 Order name: NT PRO-BNP; Complete Time: 12:13 [facility] 10/27 10:52 Order name: PT-INR; Complete Time: 12:13 [facility] 10/27 10:52 Order name: Troponin HS; Complete Time: 12: [facility] 10/27 10:52 Order name: COVID-19/FLU A+B; Complete Time: 12: [facility] 10/27 10:52 Order name: XRAY Chest (1 view); Complete Time: 12: [facility] 10/27 10:52 Order name: EKG; Complete Time: 10:52 [facility] 10/27 10:52 Order name: Cardiac monitoring; Complete Time: 11: [facility] 10/27 10:52 Order name: EKG - Nurse/Tech; Complete Time: 11: [facility] 10/27 10:52 Order name: IV Saline Lock; Complete Time: [facility] 10/27 10:52 Order name: Labs collected and sent; Complete Time: 11: [facility] 10/27 10:52 Order name: O2 Per Protocol; Complete Time: : [facility] 10/27 10:52 Order name: O2 Sat Monitoring; Complete Time: 11: [facility] Administered Medications: 11:28 Drug: Furosemide IVP 40 mg Route: IVP; Site: right antecubital; hb 14:30 Follow up: Response: No adverse reaction eh3 11:28 Drug: Levalbuterol Inhalation 1.25 mg Route: Inhalation; hb 12:30 Follow up: Response: Wheezing diminished eh3 Disposition: 14:46 Co-signature as Attending Physician, Phuc Rocha MD I reviewed the patient's care rt provided by the Advanced Practice Provider and agree with the diagnosis and treatment plan. Disposition Summary: 10/27/22 14:01 Discharge Ordered Location: Home [facility] Condition: Stable [facility] Diagnosis - Unspecified systolic (congestive) heart failure [facility] Followup: [facility] - With: Private Physician - When: 1 - 2 days - Reason: Recheck today's complaints, Continuance of care, Re-evaluation by your physician Discharge Instructions: - Discharge Summary Sheet [facility] - Heart Failure, Diagnosis [facility] - Acute Respiratory Distress Syndrome, Adult [facility] Forms: - Medication Reconciliation Form [facility] - Thank You Letter [facility] - Antibiotic Education [facility] - Prescription Opioid Use [facility] Prescriptions: - Advair Diskus 250-50 mcg/dose Inhalation Blister, With Inhalation Device - administer 1 inhalation by INHALATION route 2 times per day; 1 Unspecified; [facility] Refills: 0, Product Selection Permitted - Atorvastatin 40 mg - use 1 tablet by ORAL route daily; 30 tablet; Refills: 0, Product Selection [facility] Permitted - carvedilol 3.125 mg Oral tablet - take 1 tablet by ORAL route 2 times per day must administer with a meal/food; jm 60 tablet; Refills: 0, Product Selection Permitted - Lasix 40 mg Oral Tablet - take 1 tablet by ORAL route once daily for 30 days; 30 tablet; Refills: 0, [facility] Product Selection Permitted - Metformin 1,000 mg Oral Tablet - take 1 tablet by ORAL route every 12 hours with morning and evening meals; 60 jmm tablet; Refills: 0, Product Selection Permitted Signatures: Dispatcher [employer] Geoffrey Alejo PA PA Arlene Mejía, RN RN Tessy Eaton RN RN jl7 Phuc Rocha MD MD rt Jessie Harris RN eh3
--- NOTE | 2022-10-27 14:02 | ER ---
Nurse's Notes [facility] Name: Antonio Manning Age: 57 yrs Sex: Male : 1965 Arrival Date: 10/27/2022 Time: 10:32 Bed 2 Private MD: Diagnosis: Unspecified systolic (congestive) heart failure Presentation: 10/27 10:37 Chief complaint: Patient states: SOB on exertion x 3-4 days, ran out of CHF medication jl7 1 week ago. Coronavirus screen: At this time, the client does not indicate any symptoms associated with coronavirus-19. Ebola Screen: No symptoms or risks identified at this time. Initial Sepsis Screen: Does the patient meet any 2 criteria? No. Patient's initial sepsis screen is negative. Does the patient have a suspected source of infection? No. Patient's initial sepsis screen is negative. Risk Assessment: Do you want to hurt yourself or someone else? Patient reports no desire to harm self or others. Onset of symptoms was October 23, 2022. 10:37 Method Of Arrival: Ambulatory [facility] 10:37 Acuity: SALLIE 3 jl7 Triage Assessment: 10:39 General: Appears in no apparent distress. uncomfortable, Behavior is cooperative, jl7 anxious. Pain: Complains of pain in low back area Pain currently is 10. out of 10 on a pain scale. Respiratory: Reports shortness of breath on exertion Airway is patent Respiratory effort is even, labored, using tripod position, Respiratory pattern is symmetrical, tachypnea Onset: The symptoms/episode began/occurred gradually, the patient has moderate shortness of breath. Historical: - Allergies: 10:39 BILLY INHIBITORS; jl7 10:39 Iodine; jl7 10:39 shrimp; jl7 - Home Meds: 10:39 Metformin Oral [Active]; Lasix Oral [Active]; jl7 - PMHx: 10:39 Congestive heart failure; Diabetes - NIDDM; Hypercholesterolemia; jl7 - Immunization history:: Client reports having NOT received the Covid vaccine. - Social history:: Smoking status: Patient reports the use of cigarette tobacco products, smokes one pack cigarettes per day. Screenin:29 [facility] ED Fall Risk Assessment (Adult) Score/Fall Risk Level 0 - 2 = Low Risk hb Oriented to surroundings, Maintained a safe environment, Educated pt \T\ family on fall prevention, incl call for assistance when getting out of bed. Abuse screen: Denies threats or abuse. Denies injuries from another. Nutritional screening: No deficits noted. Tuberculosis screening: No symptoms or risk factors identified. Assessment: 11:28 General: Appears in no apparent distress. Behavior is calm, cooperative. Pain: Pain hb currently is 10 out of 10 on a pain scale. Neuro: Level of Consciousness is awake, alert, obeys commands, Oriented to person, place, time, situation. Cardiovascular: Patient's skin is warm and dry. Respiratory: Reports shortness of breath at rest on exertion pain with respiration Respiratory effort is even, mildly labored Respiratory pattern is tachypnea. GI: No signs and/or symptoms were reported involving the gastrointestinal system. : No signs and/or symptoms were reported regarding the genitourinary system. EENT: No signs and/or symptoms were reported regarding the EENT system. Derm: Skin is pink, warm \T\ dry. Musculoskeletal: No signs and/or symptoms reported regarding the musculoskeletal system. 12:30 Reassessment: Patient appears in no apparent distress at this time. Patient and/or 3 family updated on plan of care and expected duration. Pain level reassessed. Patient is alert, oriented x 3, equal unlabored respirations, skin warm/dry/pink. Cardiovascular: Rhythm is irregular. Respiratory: Airway is patent Breath sounds are coarse bilaterally. 13:30 Reassessment: Patient appears in no apparent distress at this time. Patient and/or 3 family updated on plan of care and expected duration. Pain level reassessed. Patient is alert, oriented x 3, equal unlabored respirations, skin warm/dry/pink. 14:30 Reassessment: Patient appears in no apparent distress at this time. Patient and/or 3 family updated on plan of care and expected duration. Pain level reassessed. Patient is alert, oriented x 3, equal unlabored respirations, skin warm/dry/pink. Vital Signs: 10:37 BP 141 / 110; Pulse 101; Resp 23; Temp 98.1; Pulse Ox 100% ; Weight 117.93 kg; Height 5 jl7 ft. 11 in. ; Pain 10/10; 11:30 BP 158 / 84; Pulse 93; Resp 25; Pulse Ox 100% on R/A; eh3 12:30 BP 142 / 65; Pulse 97; Resp 24; Pulse Ox 99% on R/A; eh3 13:30 BP 146 / 92; Pulse 97; Resp 23; Pulse Ox 100% on R/A; eh3 14:30 BP 168 / 86; Pulse 99; Resp 20; Pulse Ox 100% on R/A; eh3 10:37 Body Mass Index 36.26 (117.93 kg, 180.34 cm) jl7 10:37 Pain Scale: Adult 7 ED Course: 10:32 Patient arrived in ED. rg4 10:39 Triage completed. jl7 10:39 Arm band placed on right wrist. jl7 10:47 Geoffrey Otero PA is PHCP. jmm 10:47 Phuc Rocha MD is Attending Physician. m 11:20 Inserted saline lock: 22 gauge in right antecubital area, using aseptic technique. hb Blood collected. 11:28 COVID-19/FLU A+B Sent. hb 11:30 Patient has correct armband on for positive identification. hb 11:45 XRAY Chest (1 view) In Process Unspecified. EDMS 13:48 Jessie Harris, CHETNA is Primary Nurse. eh3 14:40 No provider procedures requiring assistance completed. IV discontinued, intact, eh3 bleeding controlled, No redness/swelling at site. Pressure dressing applied. Administered Medications: 11:28 Drug: Furosemide IVP 40 mg Route: IVP; Site: right antecubital; hb 14:30 Follow up: Response: No adverse reaction eh3 11:28 Drug: Levalbuterol Inhalation 1.25 mg Route: Inhalation; hb 12:30 Follow up: Response: Wheezing diminished eh3 Medication: 11:30 VIS not applicable for this client. hb Output: 13:30 Urine: 1700ml (Voided); Total: 1700ml. eh3 Outcome: 14:01 Discharge ordered by . [facility] 14:40 Discharged to home ambulatory, with family. eh3 14:40 Condition: stable 14:40 Discharge instructions given to patient, Instructed on discharge instructions, follow up and referral plans. medication usage, Demonstrated understanding of instructions, follow-up care, medications, Prescriptions given X 5 14:42 Patient left the ED. eh3 Signatures: Dispatcher [employer] EDMS Geoffrey Otero PA PA Arlene Mejía RN RN Marisol Jaffe rg4 Tessy Eaton RN RN jl7 Jessie Harris, RN RN eh3
[2022-10-27 14:59] VITALS: TEMP 98.1
[2022-10-27 15:12] VITALS: O2SAT 100
[2022-10-27 15:13] VITALS: BP 168/86
--- NOTE | 2022-10-30 12:35 | EKG ---
Test Date: 2022-10-27 Test Time: 11:23:01 Cordage Sales Representative: TORO MEASUREMENT RESULTS: Intervals: Rate: 98 [place]: QRSD: 94 QT: 384 QTc: 490 [place]: P: [place]: QRS: 237 T: 28 INTERPRETIVE STATEMENTS: Accelerated Junctional rhythm with frequent premature ventricular complexes Anterolateral infarct, age undetermined Compared to ECG 09/01/2022 23:56:53 Accelerated junctional rhythm now present Ventricular premature complex(es) now present Sinus rhythm no longer present Myocardial infarct finding still present Electronically Signed On 10-30-22 12:28:44 CDT by Skinny Vigil
== END 2022-10-27 14:42 | disposition home or self-care (01) ==
LOC: ER 10:30
DX: I50.20 Unspecified systolic (congestive) heart failure (principal); F17.210 Nicotine dependence, cigarettes, uncomplicated; Z88.8 Allergy status to other drugs, medicaments and biological substances; Z91.013 Allergy to seafood; Z91.048 Other nonmedicinal substance allergy status
CPT/HCPCS: 0240U; 36415; 71045; 80048; 80076; 83735; 83880; 84484; 85025; 85610; 93005; 96374; 99284; J1940; J7614

== ENCOUNTER 2024-09-28 01:14 | Emergency (ER) | payer OTHER ==
[2024-09-28 02:34] LABS: Influenza A Ag Negative; Influenza B Ag Negative; SARS-CoV-2 Antigen Rapid Res Negative (Negative)
[2024-09-28] MEDS ORDERED: BENZONATATE 100 MG CAP PO ONE (02:39)
--- NOTE | 2024-09-28 03:45 | RAD REPORT ---
EXAM: XR Chest, 2 Views CLINICAL HISTORY: The patient is 59 years old and is Male; Cough;Fever TECHNIQUE: Frontal and lateral views of the chest. COMPARISON: No relevant prior studies available. FINDINGS: Lungs: Unremarkable. No consolidation. Pleural space: Unremarkable. No pneumothorax. Heart: Unremarkable. Mediastinum: Unremarkable. Normal mediastinal contour. Bones/joints: No acute findings. Tubes, lines and devices: Left-sided AICD. Other findings: Dextrocardia. IMPRESSION: No acute findings in the chest. Electronically signed by: Raz Yancey MD 09/28/2024 03:33 AM [facility] 8 Due to temporary technical issues with the PACS/[employer] reporting system, reports are being cherri d by the in-house radiologist without review as a courtesy to ensure prompt reporting the interpreting radiologist is fully responsible for the content of the report. Transcribed Date/Time: 09/28/2024 3:45 AM
--- NOTE | 2024-09-28 04:00 | ER ---
Nurse's Notes [facility] Name: Antonio Manning Age: 59 yrs Sex: Male : 1965 Arrival Date: 09/28/2024 Time: 01:14 Bed 5 Private MD: Diagnosis: Acute upper respiratory infection, unspecified Presentation: 09/28 01:41 Chief complaint: Patient states: cough, congestion, runny nose X2 weeks. 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 lg3 Took unknown amount of ibuprofen [employer]. Coronavirus screen: Client denies travel out of the [place] in the last 14 days. Client presents with at least one sign or symptom that may indicate coronavirus-19. Standard/surgical mask placed on the client. Ebola Screen: No symptoms or risks identified at this time. Initial Sepsis Screen: Does the patient meet any 2 criteria? No. Patient's initial sepsis screen is negative. Does the patient have a suspected source of infection? No. Patient's initial sepsis screen is negative. Risk Assessment: Do you want to hurt yourself or someone else? Patient reports no desire to harm self or others. Onset of symptoms is unknown. 01:41 Method Of Arrival: Ambulatory lg3 01:41 Acuity: SALLIE 4 lg3 Triage Assessment: 01:44 General: Appears in no apparent distress. comfortable, Behavior is calm, cooperative. lg3 Pain: Denies pain. EENT: No deficits noted. Reports nasal congestion nasal discharge. Neuro: No deficits noted. Heaton Agitation-Sedation Scale (RASS): 0 - Alert and Calm Level of Consciousness is awake, alert, obeys commands, Oriented to person, place, time, situation. Cardiovascular: No deficits noted. Denies chest pain, shortness of breath, Capillary refill Clubbing of nail beds is absent JVD is absent Patient's skin is warm and dry. Respiratory: No deficits noted. Reports cough that is Airway is patent Respiratory effort is even, unlabored, Respiratory pattern is regular, symmetrical, Breath sounds are clear bilaterally. GI: No deficits noted. No signs and/or symptoms were reported involving the gastrointestinal system. : No signs and/or symptoms were reported regarding the genitourinary system. Derm: No deficits noted. No signs and/or symptoms reported regarding the dermatologic system. Skin is intact, is healthy with good turgor, Skin is dry, Skin is normal, Skin temperature is warm. Musculoskeletal: No deficits noted. No signs and/or symptoms reported regarding the musculoskeletal system. Circulation, motion, and sensation intact. Range of motion: intact in all extremities. Historical: - Allergies: 01:44 BILLY INHIBITORS; lg3 01:44 Iodine; lg3 01:44 shrimp; lg3 - Home Meds: 01:44 Unable to obtain [Active]; lg3 - PMHx: 01:44 Congestive heart failure; Diabetes - NIDDM; Hypercholesterolemia; lg3 - Immunization history:: Adult Immunizations up to date. - Infectious Disease History:: Denies. - Social history:: Smoking status: Patient reports the use of cigarette tobacco products, smokes one-half pack cigarettes per day, Patient uses alcohol, occasionally. Patient/guardian denies using street drugs. Screenin:46 [facility] ED Fall Risk Assessment (Adult) History of falling in the last 3 months, lg3 including since admission No falls in past 3 months (0 pts) Confusion or Disorientation No (0 pts) Intoxicated or Sedated No (0 pts) Impaired Gait No (0 pts) Mobility Assist Device Used No (0 pt) Altered Elimination No (0 pt) Score/Fall Risk Level 0 - 2 = Low Risk Oriented to surroundings, Maintained a safe environment, Educated pt \T\ family on fall prevention, incl call for assistance when getting out of bed, Assessed \T\ reinforced patient's understanding of fall precautions. Abuse screen: Denies threats or abuse. Denies injuries from another. Nutritional screening: No deficits noted. Tuberculosis screening: No symptoms or risk factors identified. Assessment: 01:46 General: see triage assessment. lg3 Vital Signs: 01:41 BP 115 / 90; Pulse 105; Resp 16 S; Temp 98(O); Pulse Ox 99% on R/A; Weight 99.79 kg; lg3 Height 5 ft. 11 in. (R); 02:45 BP 123 / 86; Pulse 96; Resp 18; Pulse Ox 99% ; cp4 04:16 BP 122 / 84; Pulse 91; Resp 18; Pulse Ox 99% ; cp4 01:41 Body Mass Index 30.68 (99.79 kg, 180.34 cm) lg3 ED Course: 01:18 Patient arrived in ED. jj6 01:24 Wing Montoya DO is Attending Physician. ms3 01:43 Triage completed. lg3 01:44 Arm band placed on left wrist. lg3 01:46 Patient taken to lobby, ambulatory, steady gait. lg3 01:46 Patient has correct armband on for positive identification. lg3 02:18 Jacque Barry is Primary Nurse. cp4 02:29 Chest Pa And Lat (2 Views) XRAY In Process Unspecified. EDMS 03:59 Addison العلي DO is Referral Physician. ms3 04:18 Provided Education on: upper respiratory infection. cp4 04:18 No provider procedures requiring assistance completed. Patient did not have IV access cp4 during this emergency room visit. Administered Medications: 02:41 Drug: Tessalon Perle PO 200 mg PO once Route: PO; cp4 04:17 Follow up: Response: No adverse reaction cp4 Medication: 01:46 VIS not applicable for this client. lg3 Outcome: 04:00 Discharge ordered by MD. ms3 04:18 Discharged to home ambulatory, cp4 04:18 Condition: stable 04:18 Discharge instructions given to patient, family, Instructed on discharge instructions, follow up and referral plans. medication usage, Demonstrated understanding of instructions, follow-up care, medications, Prescriptions given X 1, 04:18 Patient left the ED. cp4 Signatures: Dispatcher [employer] EDMS Trina Andre RN RN lg3 Wing Montoya DO DO ms3 Nasreen Dover jj6 Jacque Barry cp4
--- NOTE | 2024-09-28 04:00 | EDPHYS ---
Physician Documentation [facility] Name: Antonio Manning Age: 59 yrs Sex: Male : 1965 Arrival Date: 09/28/2024 Time: 01:14 Bed 5 Private MD: ED Physician Wing Montoya HPI: 09/28 01:49 This 59 yrs old Male presents to ER via Ambulatory with complaints of Flu Symptoms. ms3 01:49 59-year-old male with past medical history of congestive heart failure, diabetes, ms3 hypercholesterolemia presents to the emergency department for runny nose, cough, fevers that been ongoing for 2 weeks. Patient states he took ibuprofen prior to arrival. Patient denies pain at this time. Patient denies nausea, vomiting, diarrhea.. Historical: - Allergies: :44 BILLY INHIBITORS; lg3 01:44 Iodine; lg3 01:44 shrimp; lg3 - Home Meds: :44 Unable to obtain [Active]; lg3 - PMHx: 01:44 Congestive heart failure; Diabetes - NIDDM; Hypercholesterolemia; lg3 - Immunization history:: Adult Immunizations up to date. - Infectious Disease History:: Denies. - Social history:: Smoking status: Patient reports the use of cigarette tobacco products, smokes one-half pack cigarettes per day, Patient uses alcohol, occasionally. Patient/guardian denies using street drugs. ROS: 01:49 Cardiovascular: Negative for chest pain, and palpitations. ms3 01:49 Abdomen/GI: Negative for abdominal pain, nausea, vomiting, diarrhea, and constipation, MS/Extremity: Negative for injury and deformity, Skin: Negative for injury, rash, and discoloration, 01:49 Constitutional: Positive for fever, 01:49 Respiratory: Positive for cough, Exam: 01:49 Constitutional: This is a well developed, well nourished patient who is awake, alert, ms3 and in no acute distress. 01:49 Respiratory: Lungs have equal breath sounds bilaterally, clear to auscultation and percussion. No rales, rhonchi or wheezes noted. No increased work of breathing, no retractions or nasal flaring. Skin: Warm, dry with normal turgor. Normal color with no rashes, no lesions, and no evidence of cellulitis. MS/ Extremity: Pulses equal, no cyanosis. Neurovascular intact. Full, normal range of motion. 01:49 Cardiovascular: Rate: tachycardic, Rhythm: regular, Pulses: no pulse deficits are appreciated, Heart sounds: normal, normal S1and S2, Vital Signs: 01:41 BP 115 / 90; Pulse 105; Resp 16 S; Temp 98(O); Pulse Ox 99% on R/A; Weight 99.79 kg; lg3 Height 5 ft. 11 in. (R); 02:45 BP 123 / 86; Pulse 96; Resp 18; Pulse Ox 99% ; cp4 04:16 BP 122 / 84; Pulse 91; Resp 18; Pulse Ox 99% ; cp4 01:41 Body Mass Index 30.68 (99.79 kg, 180.34 cm) lg3 MDM: 01:49 Medical Screening Exam initiated ms3 01:49 Differential Diagnosis: Bronchitis Influenza Upper Respiratory Infection Viral Syndrome ms3 Pneumonia. 04:01 Data reviewed: vital signs, nurses notes, lab test result(s), radiologic studies, and ms3 as a result, I will discharge patient. I considered the following discharge prescriptions or medication management in the emergency department Medications were administered in the Emergency Department. See MAR. Independent interpretation of the following test(s) in the Emergency Department X-Ray: My interpretation is Chest x-ray reviewed by me reveals dextrocardia.. Counseling: I had a detailed discussion with the patient and/or guardian regarding the historical points, exam findings, and any diagnostic results supporting the discharge/admit diagnosis, lab results, radiology results, the need for outpatient follow up, to return to the emergency department if symptoms worsen or persist or if there are any questions or concerns that arise at home. ED course: Discussed negative flu, COVID with the patient. Chest x-ray reviewed by me reveals dextrocardia. On reevaluation patient is alert and orient x 4, no apparent distress, nontoxic-appearing, speaking full sentences. Patient to follow-up with Dr. العلي in 2 to 3 days. All questions were answered. Return precautions discussed include shortness of breath, chest pain, worsening symptoms, or any other concerns. . 09/28 01:24 Order name: COVID-19 Ag + Flu A+B Ag; Complete Time: 02:45 ms3 09/28 01:49 Order name: Chest Pa And Lat (2 Views) XRAY ms3 Administered Medications: 02:41 Drug: Tessalon Perle PO 200 mg PO once Route: PO; cp4 04:17 Follow up: Response: No adverse reaction cp4 Disposition Summary: 09/28/24 04:00 Discharge Ordered Notes: Location: Home ms3 Condition: Stable ms3 Diagnosis - Acute upper respiratory infection, unspecified ms3 Followup: ms3 - With: Addison العلي DO - When: 1 - 2 days - Reason: Recheck today's complaints Discharge Instructions: - Discharge Summary Sheet ms3 - Upper Respiratory Infection, Adult ms3 Forms: - Medication Reconciliation Form ms3 - Antibiotic Education ms3 - Prescription Opioid Use ms3 - Patient Portal Instructions ms3 - Leadership Thank You Letter ms3 Prescriptions: - Tessalon Perles 100 mg Oral Capsule - take 1 capsule ORAL route every 8 hours As needed; 15 capsule; Refills: 0, ms3 Product Selection Permitted Signatures: Dispatcher [employer] EDMS Trina Andre RN RN lg3 Wing Montoya, DO ms3 Jacque Barry cp4 Corrections: (The following items were deleted from the chart) 01:49 01:49 Chest Pa And Lat (2 Views)+[email or web address] ordered. EDMS EDMS 04:04 04:01 ED course: Discussed negative flu, COVID with the patient. Chest x-ray reviewed ms3 by me reveals dextrocardia. On reevaluation patient is alert and orient x 4, no apparent distress, nontoxic-appearing, speaking full sentences. Patient to follow-up with Dr. Vigil in [address] to [address] العلي in 2 to 3 days. All questions were answered. Return precautions discussed include shortness of breath, chest pain, worsening symptoms, or any other concerns. . ms3
[2024-09-28 04:38] VITALS: TEMP 98; O2SAT 99
[2024-09-28 04:41] VITALS: BP 122/84
== END 2024-09-28 04:18 | disposition home or self-care (01) ==
LOC: ER 01:14
DX: J06.9 Acute upper respiratory infection, unspecified (principal); Z11.52 Encounter for screening for COVID-19; F17.210 Nicotine dependence, cigarettes, uncomplicated
CPT/HCPCS: 36415; 71046; 87428; 99283